=== PATIENT | female | born 1935 | race Caucasian/White ===

== ENCOUNTER → 2017-03-29 | Outpatient (CLI) | payer MEDICARE, OTHER ==
[2017-03-29 09:42] LABS: ABSOLUTE BASOPHILS # (AUTO) 0.1 10^3/uL (0.0-0.2); ABSOLUTE EOSINOPHILS # (AUTO) 0.2 10^3/uL (0.0-0.6); ABSOLUTE LYMPHOCYTES (AUTO) 1.5 10^3/uL (0.5-4.7); ABSOLUTE MONOCYTES (AUTO) 0.6 10^3/uL (0.1-1.4); ABSOLUTE NEUT (AUTO) 6.7 10^3/uL (1.7-8.2); BASOPHILS % (AUTO) 0.7 % (0-2); EOSINOPHILS % (AUTO) 2.3 % (0-6); HEMATOCRIT 33.5 % (36.0-47.0); HEMOGLOBIN 10.9 g/dL (12.0-15.5); HGB HCT DIFFERENCE -0.8; LYMPHOCYTES % (AUTO) 16.3 % (13-45); MEAN CORPUSCULAR HEMOGLOBIN 27.7 pg (27.0-33.4); MEAN CORPUSCULAR HGB CONC 32.5 g/dL (32.0-36.0); MEAN CORPUSCULAR VOLUME 85 fl (80-97); MONOCYTES % (AUTO) 6.8 % (3-13); RED BLOOD COUNT 3.94 10^6/uL (3.72-5.28); RED CELL DISTRIBUTION WIDTH 14.1 % (11.5-14.0); SEGMENTED NEUTROPHILS % (AUTO) 73.9 % (42-78); WHITE BLOOD COUNT 9.1 10^3/uL (4.0-10.5)
[2017-03-29 10:10] LABS: ALANINE AMINOTRANSFERASE 26 U/L (9-52); ALBUMIN 3.6 g/dL (3.5-5.0); ALKALINE PHOSPHATASE 84 U/L (38-126); ANION GAP 10 (5-19); ASPARTATE AMINO TRANSFERASE 12 U/L (14-36); BILIRUBIN,DIRECT 0.3 mg/dL (0.0-0.4); BILIRUBIN,TOTAL 0.3 mg/dL (0.2-1.3); BLOOD UREA NITROGEN 12 mg/dL (7-20); CALCIUM 9.2 mg/dL (8.4-10.2); CARBON DIOXIDE 28 mmol/L (22-30); CHLORIDE 98 mmol/L (98-107); CHOLESTEROL 199.08 mg/dL (0-200); CREATININE RESULT 0.84 mg/dL (0.52-1.25); Direct HDL 53 mg/dL (>40); GLUCOSE 91 mg/dL (75-110); POTASSIUM 5.1 mmol/L (3.6-5.0); SODIUM 135.7 mmol/L (137-145); TOTAL PROTEIN 6.7 g/dL (6.3-8.2); TRIGLYCERIDES 114 mg/dL (<150)
[2017-03-29 10:21] LABS: DIRECT LDL 125 mg/dL (<100)
== END ==
LOC: OD 08:44
PROVIDERS: ATTEND Family Medicine
DX: E78.5 Hyperlipidemia, unspecified (principal); D63.8 Anemia in other chronic diseases classified elsewhere; Z79.899 Other long term (current) drug therapy
CPT/HCPCS: 36415; 80053; 80061; 83540; 83550; 85025

== ENCOUNTER 2017-06-06 08:48 | Day surgery (SDC) | payer MEDICARE, OTHER ==
[~2017-06-06 08:48] MED LIST: PROPOFOL INJ 200 MG/20 ML VIAL IV ONE
[2017-06-06 10:34] VITALS: BP 132/67
--- NOTE | 2017-06-06 12:21 | Operative Report ---
Operative Report DATE OF SURGERY: 06/06/17 Operative Report: The risks, benefits and alternatives of the procedure including risks of bleeding, perforation requiring surgery are explained to the patient in detail and informed consent is obtained. Patient is taken back to the endoscopy suite and placed in the left, lateral decubital position. Timeout was called. Propofol medications administered. A rectal examination is done which did not reveal any masses, tears or fissures. An Olympus videoscope was inserted into the patient's rectum. It is carefully guided all the way to the cecum. The cecum was identified by the usual anatomical landmarks of the ileocecal valve as well as the appendiceal office. Photodocumentation was obtained. Prep was good. The scope was then sequentially pulled back via the rest segments of the colon including the ascending colon, hepatic flexure, transverse colon, splenic flexure, descending colon and into the rectosigmoid portions of the colon. Retroflexion maneuvers performed. The risks benefits and alternatives of the procedure explained to the patient in detail and informed consent is obtained.A GIF Olympus video scope was inserted into the patient's mouth and hypopharynx, the esophagus is identified intubated and insufflated, the scope was then advanced through the esophagus stomach and duodenum, retroflexion maneuver is done ,the esophagus stomach and first and second portions of the duodenum examined PREOPERATIVE DIAGNOSIS: Change in bowel habits. Diverticulosis. Gastroesophageal reflux disease POSTOPERATIVE DIAGNOSIS: Right side: Inflammation status post biopsy. Diverticulosis. 2 polyps in the colon removed via biopsy forceps. Esophagitis. Esophageal ulcer noted. Gastritis. Hiatal hernia OPERATION: Colonoscopy with biopsy. EGD with biopsy SURGEON: HUONG ALEXANDER ANESTHESIA: LMAC TISSUE REMOVED OR ALTERED: As noted above. COMPLICATIONS: None. ESTIMATED BLOOD LOSS: None. INTRAOPERATIVE FINDINGS: As described above. PROCEDURE: Patient tolerated procedure well. No immediate postprocedure complications are noted. Patient discharged in good condition. Discharge date 06/06/2017. Discharge diet: Regular. Discharge activity: Regular. 2-3 week follow-up to discuss findings. Patient is instructed to call the office or proceed to the emergency room should there be any further problems or questions. We will wait on pathology. 3-5 year surveillance colonoscopy due to the finding of polyps. We will need follow-up EGD to document healing of the ulcer.
== END 2017-06-06 10:33 | disposition home or self-care (01) ==
LOC: END 08:48
PROVIDERS: ATTEND Internal Medicine Gastroenterology
PROC: 0DB58ZX Excision of Esophagus, Via Natural or Artificial Opening Endoscopic, Diagnostic (ICD-10-PCS; 2017-06-06)
PROC: 0DBK8ZX Excision of Ascending Colon, Via Natural or Artificial Opening Endoscopic, Diagnostic (ICD-10-PCS; 2017-06-06)
PROC: 0DB68ZX Excision of Stomach, Via Natural or Artificial Opening Endoscopic, Diagnostic (ICD-10-PCS; principal; 2017-06-06 10:00)
PROC: 0DBF8ZX Excision of Right Large Intestine, Via Natural or Artificial Opening Endoscopic, Diagnostic (ICD-10-PCS; 2017-06-06 10:00)
DX: K21.9 Gastro-esophageal reflux disease without esophagitis (principal); K52.9 Noninfective gastroenteritis and colitis, unspecified; K57.30 Diverticulosis of large intestine without perforation or abscess without bleeding; D12.3 Benign neoplasm of transverse colon; K29.70 Gastritis, unspecified, without bleeding; K44.9 Diaphragmatic hernia without obstruction or gangrene; K21.0 Gastro-esophageal reflux disease with esophagitis; K22.10 Ulcer of esophagus without bleeding; M19.90 Unspecified osteoarthritis, unspecified site; I10 Essential (primary) hypertension; D64.9 Anemia, unspecified; F17.210 Nicotine dependence, cigarettes, uncomplicated; Z79.899 Other long term (current) drug therapy
CPT/HCPCS: 43239; 45380; 88305 ×2; 88312 ×2; J2704; 810

== ENCOUNTER 2017-07-29 08:09 | Day surgery (SDC) | payer MEDICARE, OTHER ==
[~2017-07-29 08:09] MED LIST changes: +DIPHENHYDRAMINE HCL 50 MG/ML VIAL ONE; +EPINEPHRINE INJ 1 MG/10 ML DISP.SYRIN ONE; +FENTANYL CITRATE INJ/PF 100 MCG/2 ML AMPUL ONE; +FLUMAZENIL INJ 0.5 MG/5 ML VIAL ONE; +GLUCAGON,HUMAN RECOMB 1 MG INJ ONE; +MIDAZOLAM 2 MG/2 ML INJ ONE; +NALOXONE HCL INJ/PF 0.4 MG/1 ML SDV ONE; +ONDANSETRON HCL INJ/PF 4 MG/2 ML SDV ONE; -PROPOFOL INJ 200 MG/20 ML VIAL IV ONE
--- NOTE | 2017-07-29 11:09 | Operative Report ---
Operative Report DATE OF SURGERY: 07/29/17 Operative Report: The risks benefits and alternatives of the procedure explained to the patient in detail and informed consent is obtained.A GIF Olympus video scope was inserted into the patient's mouth and hypopharynx, the esophagus is identified intubated and insufflated, the scope was then advanced through the esophagus stomach and duodenum, retroflexion maneuver is done, the esophagus stomach and first and second portions of the duodenum examined PREOPERATIVE DIAGNOSIS: Follow-up esophageal ulcer POSTOPERATIVE DIAGNOSIS: Healed esophageal ulcer. Hiatal hernia. Small area of Jalloh's esophagus which is prophylactically ablated given the patient's age and need for repeat procedure and sedation. OPERATION: EGD with ablation SURGEON: HUONG ALEXANDER ANESTHESIA: Moderate Sedation - 2 mg of Versed, 25 mcg of fentanyl. Conscious sedation monitoring time 30 minutes. TISSUE REMOVED OR ALTERED: None. COMPLICATIONS: None. ESTIMATED BLOOD LOSS: None. INTRAOPERATIVE FINDINGS: As noted above. PROCEDURE: Patient tolerated the procedure well. No immediate postprocedure complications are noted. Patient discharged in good condition. Discharge date 07/29/2017. Discharge diet: Regular. Discharge activity: Regular. 2-3 week follow-up to discuss findings. Patient is instructed to call the office or proceed to the emergency room should there be any further problems or questions. Continue Dexilant
[2017-07-29 12:05] VITALS: BP 124/46
== END 2017-07-29 12:10 | disposition home or self-care (01) ==
LOC: END 08:09
PROVIDERS: ATTEND Internal Medicine Gastroenterology
PROC: 0D558ZZ Destruction of Esophagus, Via Natural or Artificial Opening Endoscopic (ICD-10-PCS; principal; 2017-07-29 10:00)
DX: Z09 Encounter for follow-up examination after completed treatment for conditions other than malignant neoplasm (principal); Z87.11 Personal history of peptic ulcer disease; K44.9 Diaphragmatic hernia without obstruction or gangrene
CPT/HCPCS: 43270; J2250; J3010; J0171; J1200; J1610; J2310; J2405; J3490

== ENCOUNTER → 2017-10-20 | Outpatient (CLI) | payer MEDICARE, OTHER ==
[2017-10-20 12:08] LABS: ABSOLUTE BASOPHILS # (AUTO) 0.1 10^3/uL (0.0-0.2); ABSOLUTE EOSINOPHILS # (AUTO) 0.1 10^3/uL (0.0-0.6); ABSOLUTE LYMPHOCYTES (AUTO) 0.6 10^3/uL (0.5-4.7); ABSOLUTE MONOCYTES (AUTO) 0.5 10^3/uL (0.1-1.4); ABSOLUTE NEUT (AUTO) 8.2 10^3/uL (1.7-8.2); BASOPHILS % (AUTO) 0.7 % (0-2); EOSINOPHILS % (AUTO) 0.7 % (0-6); HEMOGLOBIN 8.7 g/dL (12.0-15.5); LYMPHOCYTES % (AUTO) 6.4 % (13-45); MEAN CORPUSCULAR HEMOGLOBIN 24.4 pg (27.0-33.4); MEAN CORPUSCULAR HGB CONC 32.2 g/dL (32.0-36.0); MEAN CORPUSCULAR VOLUME 76 fl (80-97); MONOCYTES % (AUTO) 5.3 % (3-13); PLATELET COUNT 455 10^3/uL (150-450); RED BLOOD COUNT 3.57 10^6/uL (3.72-5.28); RED CELL DISTRIBUTION WIDTH 17.3 % (11.5-14.0); SEGMENTED NEUTROPHILS % (AUTO) 86.9 % (42-78); TOTAL CELLS COUNTED % (AUTO) 100 %; WHITE BLOOD COUNT 9.4 10^3/uL (4.0-10.5)
[2017-10-20 12:31] LABS: ALANINE AMINOTRANSFERASE 15 U/L (9-52); ALBUMIN 3.2 g/dL (3.5-5.0); ALKALINE PHOSPHATASE 98 U/L (38-126); ANION GAP 10 (5-19); ASPARTATE AMINO TRANSFERASE 13 U/L (14-36); BILIRUBIN,DIRECT 0.4 mg/dL (0.0-0.4); BILIRUBIN,TOTAL 0.4 mg/dL (0.2-1.3); BLOOD UREA NITROGEN 11 mg/dL (7-20); CALCIUM 9.7 mg/dL (8.4-10.2); CARBON DIOXIDE 29 mmol/L (22-30); CHLORIDE 95 mmol/L (98-107); CHOLESTEROL 202.56 mg/dL (0-200); GLUCOSE 89 mg/dL (75-110); POTASSIUM 4.1 mmol/L (3.6-5.0); SODIUM 133.6 mmol/L (137-145); TOTAL PROTEIN 6.2 g/dL (6.3-8.2); TRIGLYCERIDES 118 mg/dL (<150)
[2017-10-20 12:43] LABS: DIRECT LDL 133 mg/dL (<100)
== END ==
LOC: OD 11:01
PROVIDERS: ATTEND Family Medicine
DX: E78.5 Hyperlipidemia, unspecified (principal); Z79.899 Other long term (current) drug therapy
CPT/HCPCS: 36415; 80053; 80061; 84443; 85025

== ENCOUNTER 2017-11-21 02:53 | Inpatient (IN) | payer MEDICARE, OTHER ==
[2017-11-21 03:45] LABS: ABSOLUTE EOSINOPHILS # (AUTO) 0.1 10^3/uL (0.0-0.6); ABSOLUTE LYMPHOCYTES (AUTO) 0.7 10^3/uL (0.5-4.7); ABSOLUTE MONOCYTES (AUTO) 0.7 10^3/uL (0.1-1.4); ABSOLUTE NEUT (AUTO) 11.2 10^3/uL (1.7-8.2); BASOPHILS % (AUTO) 0.3 % (0-2); EOSINOPHILS % (AUTO) 0.8 % (0-6); HEMATOCRIT 27.9 % (36.0-47.0); HEMOGLOBIN 8.8 g/dL (12.0-15.5); LYMPHOCYTES % (AUTO) 5.3 % (13-45); MEAN CORPUSCULAR HEMOGLOBIN 24.2 pg (27.0-33.4); MEAN CORPUSCULAR HGB CONC 31.6 g/dL (32.0-36.0); MEAN CORPUSCULAR VOLUME 77 fl (80-97); MONOCYTES % (AUTO) 5.5 % (3-13); PLATELET COUNT 399 10^3/uL (150-450); RED BLOOD COUNT 3.65 10^6/uL (3.72-5.28); RED CELL DISTRIBUTION WIDTH 17.2 % (11.5-14.0); SEGMENTED NEUTROPHILS % (AUTO) 88.1 % (42-78); TOTAL CELLS COUNTED % (AUTO) 100 %; WHITE BLOOD COUNT 12.7 10^3/uL (4.0-10.5)
--- NOTE | 2017-11-21 03:47 | ER Document Report ---
ED Fall - General Chief Complaint: Fall Stated Complaint: DIZZINESS/FALL Time Seen by Provider: 11/21/17 03:07 Mode of Arrival: Medic Information source: Patient TRAVEL OUTSIDE OF THE [place] IN LAST 30 DAYS: No - HPI Patient complains to provider of: WEAKNESS/FALL Occurred: Just prior to arrival Where: Home Notes: Patient is here with complaints of fall. The patient has a known history of anemia. Her hemoglobin was 8.7 at the beginning of October. She states that she is in the process of seeing a laser beam machine operator and was supposed to start iron infusions here shortly. She tells me that she has had an endoscopy which showed no obvious source of bleeding. She states that she got up this morning to go to the bathroom and felt extremely dizzy had a syncopal episode causing her to fall and strike her head. She denies being on blood thinning medications. She complains of a mild headache and a hematoma to the posterior aspect of her head. She complains of skin tears to the right elbow on the left hand. She also complains of mild pain in the left knee. She denies any neck or back pain. She denies any chest pain or shortness of breath. She denies abdominal pain. She denies nausea, vomiting, diarrhea. She is currently being treated for urinary tract infection. She states that she still feels very weak and is unable to stand. She lives at home with her daughter. - Related data Allergies/Adverse Reactions: Sulfa (Sulfonamide Antibiotics) Allergy (Mild, Verified 07/29/17 08:13) rash levofloxacin [From Levaquin] Adverse Reaction (Mild, Verified 07/29/17 08:13) Nausea oxycodone HCl [From Percocet] Adverse Reaction (Mild, Verified 07/29/17 08:13) Nausea Past Medical History - Social History Smoking Status: Unknown if Ever Smoked Family History: Reviewed & Not Pertinent Patient has suicidal ideation: No Patient has homicidal ideation: No - Past Medical History Cardiac Medical History: Reports: Hx Heart Attack - "old [place]" per Dr Zaragoza's clearance, YRS AGO, NO STENTS, Hx Hypertension - meds x 10 years Denies: Hx Atrial Fibrillation, Hx Congestive Heart Failure, Hx Coronary Artery Disease, Hx Hypercholesterolemia, Hx Peripheral Vascular Disease, Hx Heart Murmur Pulmonary Medical History: Denies: Hx Asthma, Hx Bronchitis, Hx COPD, Hx Pneumonia, Hx Tuberculosis Neurological Medical History: Denies: Hx Cerebrovascular Accident, Hx Seizures Renal/ Medical History: Denies: Hx End Stage Renal Disease, Hx Kidney Stones, Hx Ovarian Cysts, Hx Peritoneal Dialysis, Hx Pelvic Inflammatory Disease Malignancy Medical History: Reports: Hx Breast Cancer - RT lumpectomy 2003. Denies: Hx Cervical Cancer, Hx Leukemia, Hx Ovarian Cancer GI Medical History: Reports: Hx Gastroesophageal Reflux Disease, Hx Hiatal Hernia. Denies: Hx Crohn's Disease, Hx Irritable Bowel, Hx Liver Failure, Hx Pancreatitis, Hx Ulcer Musculoskeltal Medical History: Reports Hx Arthritis, Denies Hx Fibromyalgia, Denies Hx Multiple Sclerosis, Denies Hx Muscular Dystrophy Psychiatric Medical History: Denies: Hx Bipolar Disorder, Hx Dementia, Hx Depression, Hx Post Traumatic Stress Disorder, Hx Schizophrenia Traumatic Medical History: Reports: Hx Fractures - RT femur 2011 Infectious Medical History: Denies: Hx HIV Past Surgical History: Reports: Hx Appendectomy - as child, Hx Cholecystectomy - lap, Hx Lumpectomy - Right 2001, Hx Mastectomy - lumpectomy RT, 2001, Hx Orthopedic Surgery - right total hip, right femur. Denies: Hx Bowel Surgery, Hx Section, Hx Colostomy, Hx Coronary Artery Bypass Graft, Hx Gastric Bypass Surgery, Hx Herniorrhaphy, Hx Hysterectomy, Hx Pacemaker, Hx Tonsillectomy, Hx Tubal Ligation - Immunizations Immunizations up to date: Yes Hx Diphtheria, Pertussis, Tetanus Vaccination: No Review of Systems - Review of Systems -: Yes All other systems reviewed and negative Physical Exam - Vital signs Vitals: Resp Pulse Ox 15 98 11/21/17 03:06 11/21/17 03:06 - Notes Notes: GENERAL: alert, cooperative, nontoxic, no distress. HEAD: normocephalic, hematoma to the posterior scalp. No laceration. No depression or crepitus. EYES: conjunctiva pink without discharge, no external redness or swelling. PERRL , EOM'S INTACT EARS: no external swelling, no external redness. No hemotympanum EM NOSE: atraumatic, no external swelling. No bleeding MOUTH/THROAT: mucous membranes moist and pink, posterior pharynx without erythema, swelling, exudate. No trismus or drooling. NECK: soft, supple, full range of motion, no meningismus. No midline tenderness step-offs or crepitus to palpation of the cervical spine. CHEST: no distress, lungs clear and equal throughout. No wheezing, rales, rhonchi. CARDIAC: regular rate and rhythm, no murmur, normal capillary refill, normal pulses. No peripheral edema noted. ABDOMEN: Soft, nontender. No ecchymosis. BACK: full range of motion, no CVA tenderness. No midline tenderness step-offs or crepitus to palpation of the thoracic or lumbar spine. EXTREMITIES: full range of motion of all extremities. No redness, no swelling. No pelvis tenderness. Mild tenderness to palpation of the left posterior knee. No swelling. No redness. No ligament instability. Ankle and hip are unremarkable. NEURO: alert and oriented x 3, no focal deficits, full range of motion of all extremities. Cranial nerves II through XII are grossly intact. Normal sensation bilaterally. Normal strength bilaterally. PYSCH: appropriate mood, affect. Patient is cooperative. SKIN: pink, warm, dry, no rash. Skin tear to the right elbow, no active bleeding. Small skin tear to the left hand, no active bleeding. Course - Re-evaluation Re-evalutation: 11/21/17 06:00 ATTEMPT MADE TO CONTACT HOSPITALIST FOR ADMISSION. NO ANSWER FROM THE HOSPITALIST. 11/21/17 06:10 SECOND ATTEMPT MADE TO DISCUSS CASE WITH HOSPITALIST. NO ANSWER. 11/21/17 06:25 THIRD ATTEMPT TO REACH HOSPITALIST, PHONE IS BUSY. 11/21/17 06:41 Patient is nontoxic appearing with stable vitals. She does not appear to be orthostatic. Patient had a syncopal episode while going to the bathroom this evening. She hit the back of her head. She is on no blood thinners. She has a nonfocal neuro exam aside from extreme dizziness when standing. She still states that she feels dizzy if she stands and feels like she may pass out. Troponins negative EKG is unremarkable, CT the head shows no acute abnormalities. CT of the C-spine shows a spiculated lesion in the apices of the lung which was incompletely imaged. Chest x-ray shows a possible left upper lobe pneumonia although the patient declines any significant pneumonia type symptoms. At this point we will hold off on antibiotics. This was discussed with the hospitalist. Patient will be admitted to the hospital for further evaluation and management of her syncopal episodes with continued dizziness. The patient is anemic at 8.8, but this is stable for her. Remainder of her exam is unremarkable. - Vital Signs Vital signs: Temp Pulse Resp BP Pulse Ox 98.9 F 81 11 L 178/68 H 100 11/21/17 03:07 11/21/17 05:51 11/21/17 06:01 11/21/17 06:01 11/21/17 05:44 - Laboratory Result Diagrams: 11/21/17 03:20 11/21/17 03:20 Laboratory results interpreted by me: 11/21/17 11/21/17 11/21/17 03:20 03:20 04:01 WBC 12.7 H RBC 3.65 L Hgb 8.8 L Hct 27.9 L MCV 77 L MCH 24.2 L MCHC 31.6 L RDW 17.2 H Seg Neutrophils % 88.1 H Lymphocytes % 5.3 L Absolute Neutrophils 11.2 H Sodium 133.1 L Est GFR (Non-Af Amer) 54 L Glucose 111 H Total Protein 5.8 L Albumin 3.0 L Urine Blood SMALL H - Diagnostic Test Radiology reviewed: Image reviewed, Reports reviewed - CT head without acute findings. CT spine with no acute cervical findings with a spiculated lung lesion. Chest x-ray with possible left upper lobe pneumonia. Left knee x-ray no acute findings. Pelvis x-ray with no acute findings. - EKG Interpretation by Me EKG shows normal: Sinus rhythm, [place], Intervals, QRS Complexes Rate: Normal Discharge - Discharge Clinical Impression: Dizziness Syncope Qualifiers: Syncope type: unspecified Qualified Code(s): R55 - Syncope and collapse Fall Qualifiers: Encounter type: initial encounter Qualified Code(s): W19.XXXA - Unspecified fall, initial encounter Condition: Stable Disposition: ADMITTED INPATIENT Admitting Provider: Hospitalist Unit Admitted: IMCU Referrals: NADER ROSS MD [Primary Care Provider] - Follow up as needed
[2017-11-21 03:51] LABS: ALANINE AMINOTRANSFERASE 24 U/L (9-52); ALKALINE PHOSPHATASE 83 U/L (38-126); ANION GAP 8 (5-19); ASPARTATE AMINO TRANSFERASE 14 U/L (14-36); BILIRUBIN,DIRECT 0.3 mg/dL (0.0-0.4); BILIRUBIN,TOTAL 0.3 mg/dL (0.2-1.3); BLOOD UREA NITROGEN 16 mg/dL (7-20); CALCIUM 9.7 mg/dL (8.4-10.2); CARBON DIOXIDE 26 mmol/L (22-30); CHLORIDE 99 mmol/L (98-107); GLUCOSE 111 mg/dL (75-110); POTASSIUM 3.7 mmol/L (3.6-5.0); SODIUM 133.1 mmol/L (137-145); TOTAL PROTEIN 5.8 g/dL (6.3-8.2)
[2017-11-21 04:20] LABS: APPEARANCE,URINE SLIGHTLY-CLOUDY; BILIRUBIN,URINE NEGATIVE (NEGATIVE); COLOR,URINE YELLOW; GLUCOSE, URINE NEGATIVE (NEGATIVE); KETONES,URINE NEGATIVE (NEGATIVE); LEUKOCYTE ESTERASE,URINE NEGATIVE (NEGATIVE); NITRITE,URINE NEGATIVE (NEGATIVE); PROTEIN,URINE NEGATIVE (NEGATIVE); URINE SPECIFIC GRAVITY 1.008; UROBILINOGEN,URINE NEGATIVE mg/dL (<2.0)
--- NOTE | 2017-11-21 04:32 | RADIOLOGY REPORT (SQ) ---
EXAM DESCRIPTION: CT HEAD WITHOUT CLINICAL HISTORY: 82 years Female, FALL, HEAD INJURY COMPARISON: None. TECHNIQUE: No contrast. This exam was performed according to our departmental dose-optimization program, which includes automated exposure control, adjustment of the mA and/or kV according to patient size and/or use of iterative reconstruction technique. FINDINGS: No hemorrhage or infarct. No mass, mass effect, or midline shift. Moderate right parietal scalp swelling. Atherosclerosis. Mild cerebral volume loss. Mild white matter microangiopathy. Brain and extra-axial structures appear otherwise intact. IMPRESSION: Moderate scalp swelling. Else, no acute findings.
--- NOTE | 2017-11-21 04:43 | RADIOLOGY REPORT (SQ) ---
EXAM DESCRIPTION: CT CERVICAL SPINE WITHOUT CLINICAL HISTORY: 82 years Female, FALL, HEAD INJURY COMPARISON: None. TECHNIQUE: No contrast. Coronal and sagittal reformat. This exam was performed according to our departmental dose-optimization program, which includes automated exposure control, adjustment of the mA and/or kV according to patient size and/or use of iterative reconstruction technique. FINDINGS: Upper thorax demonstrates bilateral lung lesions including two spiculated lesions of the right upper lobe measuring up to 1.2 cm each. 0.8 cm calcified nodule posterior to the left thyroid lobe. 0.2 cm degenerative C6 and C7 anterolisthesis. Atherosclerosis. No evidence of fracture. [id number] disc desiccation. Moderate spondylosis. Partial fusion of the posterior elements at the C4-C5 level. Mild left C4 foraminal stenosis. 0.8 cm right maxillary retention cyst-mucocele. IMPRESSION: 1. Spiculated lung lesions partially imaged; cannot exclude malignancy. Recommend contrast CT of the chest. 2. 0.2 cm degenerative C6 and C7 anterolisthesis.
[2017-11-21] MEDS ORDERED: NORMAL SALINE 1000 ML 500 ML IV ONE (05:03)
--- NOTE | 2017-11-21 05:07 | RADIOLOGY REPORT (SQ) ---
EXAM DESCRIPTION: CHEST PA/LAT CLINICAL HISTORY: 82 years, Female, SYNCOPE COMPARISON: None. NUMBER OF VIEWS: 1 LIMITATIONS: None. FINDINGS: Small streakiness of the left upper lobe. Mild interstitial markings. Mild/moderate vertebral compression at estimated L1. Mild dextroconvexity. Right upper abdominal clips. Right axillary clips. IMPRESSION: 1. Small left upper lobar pneumonia/atelectasis. 2. [id number] vertebral compression deformity at the thoracic lumbar junction.
--- NOTE | 2017-11-21 05:09 | RADIOLOGY REPORT (SQ) ---
EXAM DESCRIPTION: PELVIS AP CLINICAL HISTORY: 82 years, Female, SYNCOPE NUMBER OF VIEWS: 1 LIMITATIONS: None. FINDINGS: Right total hip arthroplasty. Atherosclerosis. Mild disc desiccation at the lumbosacral junction. IMPRESSION: No acute findings. Right total hip arthroplasty.
--- NOTE | 2017-11-21 05:10 | RADIOLOGY REPORT (SQ) ---
EXAM DESCRIPTION: KNEE LEFT 3 VIEWS CLINICAL HISTORY: 82 years, Female, SYNCOPE COMPARISON: None. NUMBER OF VIEWS: 3 LIMITATIONS: None. FINDINGS: [id number] tricompartmental osteoarthritis worst at the lateral patellofemoral joint, chondrocalcinosis, and atherosclerosis. No effusion. IMPRESSION: No acute findings. 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
--- NOTE | 2017-11-21 09:17 | EKG REPORT ---
SEVERITY:- ABNORMAL ECG - SINUS RHYTHM VENTRICULAR PREMATURE COMPLEX CONSIDER ANTEROSEPTAL INFARCT BORDERLINE T ABNORMALITIES, INFERIOR LEADS : Confirmed by: Lino Wagner 21-Nov-2017 09:16:54
[2017-11-21] MEDS ORDERED: OXYCODONE-ACETAMINOPHEN 5-325 MG TABLET PO PRN (10:46)
[2017-11-21] MEDS ORDERED: RINGERS SOLUTION,LACTATED 1,000 ML IV PRN (10:46)
[2017-11-21] MEDS ORDERED: ONDANSETRON HCL INJ/PF 4 MG/2 ML SDV IV PRN (10:46)
[2017-11-21] MEDS ORDERED: IPRATROPIUM/ALBUTEROL 0.5-2.5 MG/3 ML AMPUL NEB PRN (10:46)
[2017-11-21] MEDS ORDERED: IRON SUCROSE COMPLEX 100 MG in NORMAL SALINE 100 ML IV ONE (10:55)
--- NOTE | 2017-11-21 11:32 | PDOC H&P ---
History of Present Illness Admission Date/PCP: 11/21/17 07:10 NADER ROSS MD Patient complains of: Dizziness and passing out for a few seconds during the night History of Present Illness: KEAAR FARAH is a 82 year old female who presents to the emergency room with complaints of feeling dizzy on getting up to the used to bathroom during the night. Said she did lose consciousness for a few seconds. She was unable to get up by herself and was helped up by her daughter. She denies any associated palpitations chest pain nausea vomiting and denies any incontinence. There apparently was also no seizure activity. Patient gives a history of such dizziness before in June 2017 was she did not come to the ER as this resolved spontaneously. States she had been told that she was iron deficient and she was supposed to have been started on iron infusion this week. She denies any evidence of bleeding fever cough dysuria frequency abdominal pain or any other pertinent complaints. Patient also complains of feeling dizzy on my evaluation in the ER but denies any other associated symptoms Past Medical History Past Medical History: Anemia Cardiac Medical History: Reports: Myocardial Infarction - "old [place]" per Dr Zaragoza' s clearance, YRS AGO, NO STENTS, Hypertension - meds x 10 years Denies: Atrial Fibrillation, Congestive Heart Failure, Coronary Artery Disease, Hyperlipidema, Peripheral Vascular Disease, Heart Murmur Pulmonary Medical History: Denies: Asthma, Bronchitis, Chronic Obstructive Pulmonary Disease (COPD), Pneumonia, Tuberculosis Neurological Medical History: Denies: Seizures Renal/ Medical History: Denies: End Stage Renal Disease Malignancy Medical History: Reports: Breast Cancer - RT lumpectomy 2003 Denies: Cervical Cancer, Leukemia, Ovarian Cancer GI Medical History: Reports: Gastroesophageal Reflux Disease, Hiatal Hernia Denies: Crohn's Disease Musculoskeltal Medical History: Reports: Arthritis Denies: Fibromyalgia Psychiatric Medical History: Denies: Bipolar Disorder, Dementia, Depression, Post Traumatic Stress Disorder Hematology: Reports: Anemia - chronic & post-op RT JACQUELYN/THR, PRBC's required Denies: Hemophilia, Sickle Cell Disease Infectious Medical History: Denies: HIV Past Surgical History Past Surgical History: Reports: Appendectomy - as child, Cholecystectomy - lap, Mastectomy - lumpectomy RT, 2001, Orthopedic Surgery - right total hip, right femur Denies: Amputation, Section, Colostomy, Coronary Artery Bypass Graft , Gastric Bypass Surgery, Herniorrhaphy, Hysterectomy, Pacemaker, Tonsillectomy , Tubal Ligation Social History Lives with: Family Smoking Status: Unknown if Ever Smoked Frequency of Alcohol Use: None Hx Recreational Drug Use: No Drugs: None Hx Prescription Drug Abuse: No - Advance Directive Resuscitation Status: Do Not Resuscitate Surrogate healthcare decision maker:: Daughter Family History Family History: Reviewed & Not Pertinent Parental Family History Reviewed: Yes - Unknown Children Family History Reviewed: Unknown Sibling(s) Family History Reviewed.: Unknown Medication/Allergy Allergies/Adverse Reactions: Sulfa (Sulfonamide Antibiotics) Allergy (Mild, Verified 07/29/17 08:13) rash levofloxacin [From Levaquin] Adverse Reaction (Mild, Verified 07/29/17 08:13) Nausea oxycodone HCl [From Percocet] Adverse Reaction (Mild, Verified 07/29/17 08:13) Nausea Review of Systems Constitutional: PRESENT: weakness. ABSENT: fever(s), headache(s) Ears: ABSENT: hearing changes Cardiovascular: ABSENT: chest pain, dyspnea on exertion, edema, orthropnea, palpitations Respiratory: ABSENT: cough, hemoptysis Gastrointestinal: ABSENT: abdominal pain, constipation, diarrhea, hematemesis, hematochezia, nausea, vomiting Genitourinary: ABSENT: dysuria, hematuria Musculoskeletal: ABSENT: joint swelling Neurological: ABSENT: abnormal gait, abnormal speech, confusion, dizziness, focal weakness, syncope Psychiatric: ABSENT: anxiety, depression, homidical ideation, suicidal ideation Hematologic/Lymphatic: PRESENT: other - anemia Physical Exam Vital Signs: Temp Pulse Resp BP Pulse Ox 98.9 F 81 14 173/62 H 97 11/21/17 03:07 11/21/17 05:51 11/21/17 10:01 11/21/17 10:01 11/21/17 10:01 General appearance: PRESENT: no acute distress, thin - . Elderly and frail comfortable in no distress, undernourished Head exam: PRESENT: atraumatic Eye exam: PRESENT: conjunctiva pink, EOMI, PERRLA. ABSENT: scleral icterus Mouth exam: PRESENT: dry mucosa Neck exam: ABSENT: carotid bruit, JVD, lymphadenopathy, thyromegaly Respiratory exam: PRESENT: clear to auscultation shirley. ABSENT: rales, rhonchi, wheezes Cardiovascular exam: PRESENT: RRR. ABSENT: diastolic murmur, rubs, systolic murmur Pulses: PRESENT: normal dorsalis pedis pul GI/Abdominal exam: PRESENT: normal bowel sounds, soft. ABSENT: distended, guarding, mass, organolmegaly, rebound, tenderness Rectal exam: PRESENT: deferred Extremities exam: PRESENT: full ROM. ABSENT: calf tenderness, clubbing, pedal edema Musculoskeletal exam: PRESENT: ambulatory Neurological exam: PRESENT: alert, awake, oriented to person, oriented to place , oriented to time, oriented to situation, reflexes normal, CN II-XII grossly intact. ABSENT: motor sensory deficit, aphasic Psychiatric exam: PRESENT: appropriate affect, normal mood. ABSENT: homicidal ideation, suicidal ideation Focused psych exam: ABSENT: paranoid, restlessness Results Laboratory Results: Laboratory 11/21/17 11/21/17 11/21/17 03:20 03:20 03:20 WBC 12.7 H RBC 3.65 L Hgb 8.8 L Hct 27.9 L MCV 77 L MCH 24.2 L MCHC 31.6 L RDW 17.2 H Plt Count 399 Seg Neutrophils % 88.1 H Lymphocytes % 5.3 L Monocytes % 5.5 Eosinophils % 0.8 Basophils % 0.3 Absolute Neutrophils 11.2 H Absolute Lymphocytes 0.7 Absolute Monocytes 0.7 Absolute Eosinophils 0.1 Absolute Basophils 0.0 Sodium 133.1 L Potassium 3.7 Chloride 99 Carbon Dioxide 26 Anion Gap 8 BUN 16 Creatinine 0.98 Est GFR ( Amer) > 60 Est GFR (Non-Af Amer) 54 L Glucose 111 H Calcium 9.7 Iron Total Bilirubin 0.3 Direct Bilirubin 0.3 Neonat Total Bilirubin Not Reportable Neonat Direct Bilirubin Not Reportable Neonat Indirect Bili Not Reportable AST 14 ALT 24 Alkaline Phosphatase 83 Troponin I < 0.012 Total Protein 5.8 L Albumin 3.0 L Urine Color Urine Appearance Urine pH Ur Specific Sherwood Urine Protein Urine Glucose (UA) Urine Ketones Urine Blood Urine Nitrite Urine Bilirubin Urine Urobilinogen Ur Leukocyte Esterase Urine WBC (Auto) Urine RBC (Auto) Urine Mucus (Auto) Urine Ascorbic Acid 11/21/17 11/21/17 03:20 04:01 WBC RBC Hgb Hct MCV MCH MCHC RDW Plt Count Seg Neutrophils % Lymphocytes % Monocytes % Eosinophils % Basophils % Absolute Neutrophils Absolute Lymphocytes Absolute Monocytes Absolute Eosinophils Absolute Basophils Sodium Potassium Chloride Carbon Dioxide Anion Gap BUN Creatinine Est GFR ( Amer) Est GFR (Non-Af Amer) Glucose Calcium Iron < 10.1 L Total Bilirubin Direct Bilirubin Neonat Total Bilirubin Neonat Direct Bilirubin Neonat Indirect Bili AST ALT Alkaline Phosphatase Troponin I Total Protein Albumin Urine Color YELLOW Urine Appearance SLIGHTLY-CLOUDY Urine pH 6.0 Ur Specific Sherwood 1.008 Urine Protein NEGATIVE Urine Glucose (UA) NEGATIVE Urine Ketones NEGATIVE Urine Blood SMALL H Urine Nitrite NEGATIVE Urine Bilirubin NEGATIVE Urine Urobilinogen NEGATIVE Ur Leukocyte Esterase NEGATIVE Urine WBC (Auto) 1 Urine RBC (Auto) 2 Urine Mucus (Auto) RARE Urine Ascorbic Acid NEGATIVE EKG Comments: EKG shows sinus rhythm with premature ventricular complexes as well as abnormal T waves in inferior leads. Impressions: Chest X-Ray 11/21/17 03:16 IMPRESSION: 1. Small left upper lobar pneumonia/atelectasis. 2. [id number] vertebral compression deformity at the thoracic lumbar junction. Knee X-Ray 11/21/17 03:16 IMPRESSION: No acute findings. 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 Pelvis X-Ray 11/21/17 03:16 IMPRESSION: No acute findings. Right total hip arthroplasty. Cervical Spine CT 11/21/17 03:17 IMPRESSION: 1. Spiculated lung lesions partially imaged; cannot exclude malignancy. Recommend contrast CT of the chest. 2. 0.2 cm degenerative C6 and C7 anterolisthesis. Head CT 11/21/17 03:17 IMPRESSION: Moderate scalp swelling. Else, no acute findings. Assessment & Plan - Diagnosis (1) Syncope Qualifiers: Syncope type: unspecified Qualified Code(s): R55 - Syncope and collapse Is this a current diagnosis for this admission?: Yes Plan: Patient says she lost consciousness for about a few seconds but with no associated symptoms. (2) Anemia Qualifiers: Anemia type: iron deficiency Iron deficiency anemia type: chronic blood loss Qualified Code(s): D50.0 - Iron deficiency anemia secondary to blood loss (chronic) Is this a current diagnosis for this admission?: Yes Plan: This is already been worked up by patient's PCP and in fact she was scheduled to receive a iron transfusion this week. Iron store was 10 and so go ahead and replete her iron IV. I will also check occult blood. And tells me that she has had a colonoscopy and endoscopy done within the last 3 months or so and these were negative (3) Lung mass Is this a current diagnosis for this admission?: Yes Plan: CT of the cervical spine reveals a questionable spiculated mass and a CT scan of the chest with contrast has been ordered for further evaluation. This should be followed. (4) Malnutrition Qualifiers: Malnutrition type: protein-calorie malnutrition Protein-calorie malnutrition severity: mild Qualified Code(s): E44.1 - Mild protein-calorie malnutrition Is this a current diagnosis for this admission?: Yes Plan: Patient is underweight. Supplements suggested (5) Dizziness Is this a current diagnosis for this admission?: Yes Plan: Patient will be monitored on telemetry floor and 2-dimensional echocardiogram as well as MRI of the brain and carotid Doppler studies will be obtained. (6) Fall Qualifiers: Encounter type: initial encounter Qualified Code(s): W19.XXXA - Unspecified fall, initial encounter Is this a current diagnosis for this admission?: Yes Plan: Ground-level fall during the night associated with transient loss of consciousness. - Time Time Spent: 50 to 70 Minutes Critical Time spent with patient: Less than 15 minutes Medications reviewed and adjusted accordingly: Yes Anticipated discharge: Home
[2017-11-21] MEDS ORDERED: ENOXAPARIN SODIUM INJ 40 MG/0.4 ML DISP.SYRIN SUBCUT ONE (12:30)
--- NOTE | 2017-11-21 12:55 | RADIOLOGY REPORT (SQ) ---
EXAM DESCRIPTION: MRI HEAD WITHOUT COMPLETED DATE/TIME: 11/21/2017 12:46 pm REASON FOR STUDY: Fall, dizziness COMPARISON: CT dated 11/21/2017. TECHNIQUE: Multiplanar imaging includes non-contrasted T1, T2, FLAIR, and diffusion with ADC map seq uences. Images stored on PACS. LIMITATIONS: None. FINDINGS: ANATOMY: No anomalies. Normal vascular flow voids. Pituitary fossa normal. CSF SPACES: Atrophy induced prominence of ventricles and CSF spaces. CEREBRUM: High signal intensity lesions scattered throughout the white matter on FLAIR imaging with d istribution suggesting micro-vascular ischemic changes. No evidence of hemorrhage, mass, or extraaxi al fluid collection. POSTERIOR FOSSA: No signal alteration. No hemorrhage. No edema, masses or mass effect. Internal pratik tory canals, cerebello-pontine angles, mastoids normal. DIFFUSION IMAGING: Negative for acute or sub-acute infarction. ORBITS: No masses. Globes normal. PARANASAL SINUSES: No fluid levels. Mucosa normal. OTHER: No other significant finding. IMPRESSION: ATROPHY AND CHRONIC MICRO-VASCULAR ISCHEMIC CHANGES. OTHERWISE NORMAL MRI OF THE BRAIN W ITHOUT INTRAVENOUS GADOLINIUM CONTRAST. EVIDENCE OF ACUTE STROKE: NO. TECHNICAL DOCUMENTATION: JOB ID: [id number] [employer]- All Rights Reserved Reading location - IP/workstation name: [email or web address]
[2017-11-21] MEDS ORDERED: IRON SUCROSE COMPLEX INJ/PF 100 MG/5 ML SDV IV ONE (13:00)
--- NOTE | 2017-11-21 13:35 | RADIOLOGY REPORT (SQ) ---
EXAM DESCRIPTION: CT CHEST WITH COMPLETED DATE/TIME: 11/21/2017 1:09 pm REASON FOR STUDY: ? lung lesion COMPARISON: Chest x-ray dated 11/21/2017 and CTA chest dated March 2012 TECHNIQUE: CT scan of the chest performed using helical scanning technique with dynamic intravenous contrast injection. Images reviewed with lung, soft tissue and bone windows. Reconstructed coronal and sagittal MPR images reviewed. All images stored on PACS. All CT scanners at this facility use dose modulation, iterative reconstruction, and/or weight based d osing when appropriate to reduce radiation dose to as low as reasonably achievable (ALARA). [facility]: Dose Right [facility]: CareDose [facility]: Dose Right [facility]: Teradose 4D [facility]: [employer] CONTRAST TYPE AND DOSE: contrast/concentration: Isovue 370.00 mg/ml; Total Contrast Delivered: 80.0 ml; Total Saline Delivered: 54.0 ml RENAL FUNCTION: Creatinine 0.98 RADIATION DOSE: CT Rad equipment meets quality standard of care and radiation dose reduction techniq ues were employed. CTDIvol: 6.3 mGy. DLP: 234 mGy-cm. . LIMITATIONS: None. FINDINGS: LUNGS AND PLEURA: There are couple small spiculated nodules in the right lung apex which w ere not present on the previous study. While this may only represent parenchymal scarring, the possi bility of a neoplastic process cannot be excluded. There are some minimal linear densities in the ri ght upper lobe and right middle lobe which could represent subsegmental atelectasis or scarring. A t iny ground-glass opacity is identified in the left upper lung field best seen on image number 19 of s eries 4. There is some minimal airspace consolidation in the posterior sulcus on the right most cons istent with atelectatic changes. No consolidations or pleural effusions are identified. HILAR AND MEDIASTINAL STRUCTURES: No identified masses or abnormal nodes. HEART AND VASCULAR STRUCTURES: No aneurysm or dissection. No central pulmonary emboli. No pericardi al effusion. HARDWARE: None in the chest. UPPER ABDOMEN: There are multiple varying size relative low density mass lesions in the spleen which could represent lymphoma or metastatic disease. There are a couple somewhat ill-defined relative low density masses in the liver which could be related to lymphoma or metastatic disease. There is some nodularity of the left adrenal gland suspicious for metastatic disease. There is periaortic adenopa thy in the upper abdomen. A dedicated abdominal and pelvic CT scan may be of value for further evalu ation. Left renal cyst is again identified THYROID AND OTHER SOFT TISSUES: No masses. No adenopathy. BONES: There is a vertebral compression at the thoracolumbar junction which was present on the previo us study OTHER: No other significant finding. IMPRESSION: There are couple small spiculated nodules in the right lung apex as noted above which ma y only represent parenchymal scarring however the possibility of a neoplastic process cannot be exclu ded. No acute consolidations or pleural effusions are identified. Hepatic and splenic masses as not ed above which could be related to lymphoma or metastatic disease. Periaortic adenopathy is identifi ed. There is some nodularity of the left adrenal gland as noted above. A dedicated abdominal and pe lvic CT scan may be of value for further evaluation. Other findings as noted above TECHNICAL DOCUMENTATION: JOB ID: [id number] Quality ID # [id number]: Final reports with documentation of one or more dose reduction techniques (e.g., Au tomated exposure control, adjustment of the mA and/or kV according to patient size, use of iterative reconstruction technique) 2010 [employer]- All Rights Reserved Reading location - IP/workstation name: [email or web address]
--- NOTE | 2017-11-21 15:51 | RADIOLOGY REPORT (SQ) ---
EXAM DESCRIPTION: CAROTID DOPPLER COMPLETED DATE/TIME: 11/21/2017 3:42 pm REASON FOR STUDY: Dizziness COMPARISON: None. TECHNIQUE: Grayscale ultrasound, Doppler velocity and spectra, and color Doppler images acquired of the extra-cranial carotid and vertebral arteries. Images stored on PACS. LIMITATIONS: None. FINDINGS: RIGHT CAROTID CCA Velocities: Within normal limits. ICA Velocities Peak systolic 0.91 m/s. End diastolic 0.18 m/s. Proximal ICA/CCA peak systolic ratio 1.3. Spectra normal. No significant plaque. LEFT CAROTID CCA Velocities: Within normal limits. ICA Velocities Peak systolic 1.24 m/s. End diastolic 0.20 m/s. Proximal ICA/CCA peak systolic ratio 1.7. Spectra normal. No significant plaque. VERTEBRAL ARTERIES: Antegrade flow. Normal waveforms. SUBCLAVIAN ARTERIES: No finding. OTHER: No other significant finding. IMPRESSION: NO HEMODYNAMICALLY SIGNIFICANT STENOSIS. COMMENT: Quality ID #[id number]: Velocity criteria are extrapolated from the diameter data as defined by t he Society of Radiologists in Ultrasound Consensus Conference. Radiology 2003: 229; 340-346. TECHNICAL DOCUMENTATION: JOB ID: [id number] [email or web address]- All Rights Reserved Reading location - IP/workstation name: [email or web address]
--- NOTE | 2017-11-21 18:27 | XCELERA REPORT ---
[address] [address] Transthoracic Echocardiogram Report Name: KEARA FARAH Age: 82 yrs Gender: Female : 1935 Patient Status: Inpatient Patient Location: [address] [place] [address] Study Date: 11/21/2017 02:36 PM Height: 65 in Weight: 116 lb BSA: 1.6 m2 Procedure: A complete two-dimensional transthoracic echocardiogram was performed (2D, M-mode, spectral and color flow Doppler). The study was technically adequate with some images being suboptimal in quality. Reason For Study: dizziness, syncope Ordering Physician: JANUSZ PABLO Performed By: Ana María Stroud Interpretation Summary The left ventricular ejection fraction is normal. There is borderline concentric left ventricular hypertrophy. The left ventricle is grossly normal size. Doppler measurements suggest pseudonormalized left ventricular relaxation, which is associated with grade II/IV or mild to moderate diastolic dysfunction Wall motion cannot be accurately commented on, but no definite regional wall motion abnormalities noted. The right ventricular systolic function is normal. The left atrium is mildly dilated. There is a mild amount of mitral regurgitation There is no mitral valve stenosis. No aortic regurgitation is present. There is no aortic valve stenosis There is a trace to mild amount of tricuspid regurgitation There is mild pulmonary hypertension by echo Right ventricular systolic pressure is estimated to be elevated at 30- 40mmHg. Minimal pericardial effusion. MMode/2D Measurements & Calculations RVDd: 3.0 cm LVIDd: 3.6 cm FS: 32.6 % Ao root diam: 3.1 cm IVSd: 1.0 cm LVIDs: 2.4 cm EDV(Teich): 55.3 ml LVPWd: 0.96 cm ESV(Teich): 21.1 ml Ao root area: 7.7 cm2 EF(Teich): 61.9 % LA dimension: 4.4 cm Doppler Measurements & Calculations MV E max parth: MV P1/2t max parth: Ao V2 max: LV V1 max P.7 cm/sec 59.7 cm/sec 122.2 cm/sec 4.9 mmHg MV A max parth: MV P1/2t: 128.0 msec Ao max PG: LV V1 max: 92.8 cm/sec 6.0 mmHg 110.6 cm/sec MV E/A: 0.63 MVA(P1/2t): 1.7 cm2 MV dec slope: 136.7 cm/sec2 MV dec time: 0.42 sec PA V2 max: PI end-d parth: TR max parth: 117.0 cm/sec 101.8 cm/sec 231.7 cm/sec PA max PG: TR max P.5 mmHg 21.5 mmHg Left Ventricle The left ventricle is grossly normal size. There is borderline concentric left ventricular hypertrophy. The left ventricular ejection fraction is normal. Doppler measurements suggest pseudonormalized left ventricular relaxation, which is associated with grade II/IV or mild to moderate diastolic dysfunction. Wall motion cannot be accurately commented on, but no definite regional wall motion abnormalities noted. Right Ventricle The right ventricle is grossly normal size. There is normal right ventricular wall thickness. The right ventricular systolic function is normal. Atria The right atrium is normal. The left atrium is mildly dilated. Interarterial septum not well visualized and not well dopplered. Cannot comment on ASD/PFO presence. Mitral Valve The mitral valve leaflets are sclerotic, but show no functional abnormalities. There is no mitral valve stenosis. There is a mild amount of mitral regurgitation. Aortic Valve The aortic valve is grossly normal. There is no aortic valve stenosis. No aortic regurgitation is present. Tricuspid Valve The tricuspid valve is not well visualized, but is grossly normal. There is no tricuspid stenosis. There is a trace to mild amount of tricuspid regurgitation. There is mild pulmonary hypertension by echo. Right ventricular systolic pressure is estimated to be elevated at 30-40mmHg. Pulmonic Valve The pulmonic valve is not well visualized. Great Vessels The aortic root is not well visualized but is probably normal size. The inferior vena cava appeared normal and decreased < 50% with respiration (RAP 10-15 mmHg). Effusions Minimal pericardial effusion. : JANUSZ PABLO > Lino Wagner
[2017-11-22] MEDS: HYDRALAZINE HCL INJ/PF 20 MG/1 ML SDV IV PRN ×2 (04:22→09:08)
[2017-11-22 05:11] LABS: ABSOLUTE EOSINOPHILS # (AUTO) 0.1 10^3/uL (0.0-0.6); ABSOLUTE LYMPHOCYTES (AUTO) 0.7 10^3/uL (0.5-4.7); ABSOLUTE MONOCYTES (AUTO) 0.6 10^3/uL (0.1-1.4); ABSOLUTE NEUT (AUTO) 8.3 10^3/uL (1.7-8.2); BASOPHILS % (AUTO) 0.4 % (0-2); EOSINOPHILS % (AUTO) 0.6 % (0-6); HEMATOCRIT 27.8 % (36.0-47.0); HEMOGLOBIN 8.9 g/dL (12.0-15.5); LYMPHOCYTES % (AUTO) 7.4 % (13-45); MEAN CORPUSCULAR HEMOGLOBIN 24.3 pg (27.0-33.4); MEAN CORPUSCULAR HGB CONC 31.9 g/dL (32.0-36.0); MEAN CORPUSCULAR VOLUME 76 fl (80-97); MONOCYTES % (AUTO) 6.2 % (3-13); PLATELET COUNT 400 10^3/uL (150-450); RED BLOOD COUNT 3.65 10^6/uL (3.72-5.28); RED CELL DISTRIBUTION WIDTH 17.7 % (11.5-14.0); SEGMENTED NEUTROPHILS % (AUTO) 85.4 % (42-78); TOTAL CELLS COUNTED % (AUTO) 100 %; WHITE BLOOD COUNT 9.7 10^3/uL (4.0-10.5)
[2017-11-22 05:35] LABS: ANION GAP 7 (5-19); BLOOD UREA NITROGEN 9 mg/dL (7-20); CALCIUM 9.1 mg/dL (8.4-10.2); CARBON DIOXIDE 28 mmol/L (22-30); CHLORIDE 99 mmol/L (98-107); GLUCOSE 90 mg/dL (75-110); POTASSIUM 3.2 mmol/L (3.6-5.0); SODIUM 133.9 mmol/L (137-145)
[2017-11-22] MEDS: ACETAMINOPHEN 325 MG TABLET PO PRN ×3 (09:05→17:54)
[2017-11-22] MEDS: ENOXAPARIN SODIUM INJ 40 MG/0.4 ML DISP.SYRIN SUBCUT SCH (09:08)
[2017-11-22] MEDS: DOCUSATE SODIUM 100 MG CAPSULE PO SCH (09:10)
[2017-11-22] MEDS: HYDRALAZINE HCL 25 MG TABLET PO SCH ×2 (11:35→23:08)
[2017-11-22] MEDS ORDERED: (PENDING PHARMACY ID) (Ondansetron Hcl [Zofran 4 Mg Tablet] 4 MG) PO PRN (13:46)
[2017-11-22] MEDS ORDERED: ONDANSETRON 4 MG TAB.RAPDIS PO PRN (13:51)
[2017-11-22] MEDS ORDERED: FLUCONAZOLE 100 MG TABLET PO ONE (14:00)
[2017-11-22] MEDS ORDERED: PANTOPRAZOLE SODIUM 40 MG VIAL IV ONE (14:15)
--- NOTE | 2017-11-22 15:06 | PDOC PROGRESS REPORT ---
Subjective Progress Note for:: 11/22/17 Subjective:: Patient is a 82-year-old woman who presented to the hospital with syncope. MRI of the brain on November 21, 2017 with no acute findings besides atrophy and chronic microvascular ischemic change. CT chest this admission with questionable lung mass. Patient was of the findings and she stated at her age she would not want any more procedures done. She reports having bladder pressure. Reason For Visit: SYNCOPE, ANEMIA,LUNG MASS Physical Exam Vital Signs: Temp Pulse Resp BP Pulse Ox 98.5 F 87 16 132/55 H 96 11/22/17 11:30 11/22/17 12:30 11/22/17 12:30 11/22/17 11:30 11/22/17 12:30 Intake & Output 11/21/17 11/22/17 11/23/17 06:59 06:59 06:59 Intake Total 1725 200 Balance 1725 200 Weight 53.6 kg General appearance: PRESENT: cooperative, thin - thin elderly woman, other Head exam: PRESENT: atraumatic, normocephalic Eye exam: PRESENT: EOMI Mouth exam: PRESENT: moist Neck exam: PRESENT: full ROM Respiratory exam: PRESENT: clear to auscultation shirley, unlabored. ABSENT: accessory muscle use Cardiovascular exam: PRESENT: RRR GI/Abdominal exam: PRESENT: normal bowel sounds, soft Rectal exam: PRESENT: deferred Extremities exam: PRESENT: full ROM Neurological exam: PRESENT: alert, awake, oriented to person, oriented to time, oriented to situation Psychiatric exam: PRESENT: appropriate affect Skin exam: PRESENT: dry, warm Results Laboratory Results: 11/22/17 04:09 11/22/17 04:09 11/22/17 11/22/17 11/22/17 04:09 04:09 06:35 WBC 9.7 RBC 3.65 L Hgb 8.9 L Hct 27.8 L MCV 76 L MCH 24.3 L MCHC 31.9 L RDW 17.7 H Plt Count 400 Seg Neutrophils % 85.4 H Lymphocytes % 7.4 L Monocytes % 6.2 Eosinophils % 0.6 Basophils % 0.4 Absolute Neutrophils 8.3 H Absolute Lymphocytes 0.7 Absolute Monocytes 0.6 Absolute Eosinophils 0.1 Absolute Basophils 0.0 Sodium 133.9 L Potassium 3.2 L Chloride 99 Carbon Dioxide 28 Anion Gap 7 BUN 9 Creatinine 0.78 Est GFR ( Amer) > 60 Est GFR (Non-Af Amer) > 60 Glucose 90 Calcium 9.1 Stool Occult Blood NEGATIVE 11/22/17 04:09 Troponin I 0.188 Impressions: Carotid Doppler Study 11/21/17 00:00 IMPRESSION: NO HEMODYNAMICALLY SIGNIFICANT STENOSIS. Chest CT 11/21/17 00:00 IMPRESSION: There are couple small spiculated nodules in the right lung apex as noted above which may only represent parenchymal scarring however the possibility of a neoplastic process cannot be excluded. No acute consolidations or pleural effusions are identified. Hepatic and splenic masses as noted above which could be related to lymphoma or metastatic disease. Periaortic adenopathy is identified. There is some nodularity of the left adrenal gland as noted above. A dedicated abdominal and pelvic CT scan may be of value for further evaluation. Other findings as noted above Head MRI 11/21/17 00:00 IMPRESSION: ATROPHY AND CHRONIC MICRO-VASCULAR ISCHEMIC CHANGES. OTHERWISE NORMAL MRI OF THE BRAIN WITHOUT INTRAVENOUS GADOLINIUM CONTRAST. EVIDENCE OF ACUTE STROKE: NO. Chest X-Ray 11/21/17 03:16 IMPRESSION: 1. Small left upper lobar pneumonia/atelectasis. 2. Wpie-yh-mamukbhl vertebral compression deformity at the thoracic lumbar junction. Knee X-Ray 11/21/17 03:16 IMPRESSION: No acute findings. 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 Pelvis X-Ray 11/21/17 03:16 IMPRESSION: No acute findings. Right total hip arthroplasty. Cervical Spine CT 11/21/17 03:17 IMPRESSION: 1. Spiculated lung lesions partially imaged; cannot exclude malignancy. Recommend contrast CT of the chest. 2. 0.2 cm degenerative C6 and C7 anterolisthesis. Head CT 11/21/17 03:17 IMPRESSION: Moderate scalp swelling. Else, no acute findings. Assessment & Plan - Diagnosis (1) Syncope Qualifiers: Syncope type: unspecified Qualified Code(s): R55 - Syncope and collapse Is this a current diagnosis for this admission?: Yes Plan: MRI brain negative for acute findings. (2) Mass of lung Is this a current diagnosis for this admission?: Yes Plan: Daughter was updated. Patient is not interested in any further diagnostic testing at this time. (3) Anemia Qualifiers: Anemia type: iron deficiency Iron deficiency anemia type: chronic blood loss Qualified Code(s): D50.0 - Iron deficiency anemia secondary to blood loss (chronic) Is this a current diagnosis for this admission?: Yes Plan: The daughter reports that she has been referred to hematology. She was given IV iron this admission. (4) Severe protein-calorie malnutrition Is this a current diagnosis for this admission?: Yes Plan: Encourage good p.o. intake as tolerated Protein supplement (5) Fall Qualifiers: Encounter type: initial encounter Qualified Code(s): W19.XXXA - Unspecified fall, initial encounter Is this a current diagnosis for this admission?: Yes Plan: Fall precaution Continue physical therapy (6) DVT prophylaxis Is this a current diagnosis for this admission?: Yes Plan: On Lovenox - Time Time Spent with patient: 25-34 minutes - Including phone call with family Anticipated discharge: Home with Homehealth Within: within 24 hours - depending on PT assessment
[2017-11-22] MEDS: CIPROFLOXACIN HCL 500 MG TABLET PO SCH (17:58)
[2017-11-23] MEDS ORDERED: POTASSIUM CHLORIDE 10 MEQ TABLET.SA PO ONE (07:36)
[2017-11-23] MEDS ORDERED: LANSOPRAZOLE 30 MG TAB.RAP.DR PO ONE (08:00)
[2017-11-23] MEDS: ENOXAPARIN SODIUM INJ 40 MG/0.4 ML DISP.SYRIN SUBCUT SCH (09:29)
[2017-11-23] MEDS: LOSARTAN POTASSIUM 50 MG TABLET PO SCH (09:29)
[2017-11-23] MEDS: ESCITALOPRAM OXALATE 10 MG TABLET PO SCH (09:30)
[2017-11-23] MEDS: LORATADINE 10 MG TABLET PO SCH (09:30)
[2017-11-23] MEDS: HYDRALAZINE HCL 25 MG TABLET PO SCH ×2 (09:31→21:19)
[2017-11-23] MEDS: CIPROFLOXACIN HCL 500 MG TABLET PO SCH ×2 (09:31→17:07)
[2017-11-23] MEDS: DOCUSATE SODIUM 100 MG CAPSULE PO SCH (09:53)
[2017-11-23] MEDS ORDERED: (PENDING PHARMACY ID) (Fexofenadine Hcl [Allegra] 60 MG) PO SCH (10:00)
[2017-11-23] MEDS ORDERED: FAMOTIDINE 20 MG TABLET PO SCH (10:00)
[2017-11-23] MEDS ORDERED: PANTOPRAZOLE SODIUM 40 MG VIAL IV SCH (10:00)
[2017-11-23] MEDS: ACETAMINOPHEN 325 MG TABLET PO PRN (12:13)
[2017-11-23] MEDS: LANSOPRAZOLE 30 MG TAB.RAP.DR PO SCH (17:08)
--- NOTE | 2017-11-23 17:46 | PDOC PROGRESS REPORT ---
Subjective Progress Note for:: 11/23/17 Subjective:: Patient is a 82-year-old woman who presented to the hospital with syncope. MRI of the brain on November 21, 2017 with no acute findings besides atrophy and chronic microvascular ischemic change. CT chest this admission with questionable lung mass. Patient was of the findings and she stated at her age she would not want any more procedures done. Seen this am, she reports less bladder pressure and the daughter called and updated Reason For Visit: SYNCOPE, ANEMIA,LUNG MASS Physical Exam Vital Signs: Temp Pulse Resp BP Pulse Ox 98.4 F 76 16 140/60 H 99 11/23/17 15:07 11/23/17 15:07 11/23/17 15:07 11/23/17 15:07 11/23/17 15:07 Intake & Output 11/22/17 11/23/17 11/24/17 06:59 06:59 06:59 Intake Total 1725 1228 700 Balance 1725 1228 700 Weight 53.6 kg 56.7 kg General appearance: PRESENT: no acute distress, thin, other - frail elderly woman Head exam: PRESENT: atraumatic, normocephalic Eye exam: PRESENT: EOMI Mouth exam: PRESENT: moist, neck supple Neck exam: PRESENT: full ROM Respiratory exam: PRESENT: clear to auscultation shirley, unlabored GI/Abdominal exam: PRESENT: normal bowel sounds, soft Rectal exam: PRESENT: deferred Extremities exam: PRESENT: full ROM Neurological exam: PRESENT: alert, oriented to person, oriented to time, oriented to situation Skin exam: PRESENT: dry, warm Results Laboratory Results: 11/22/17 04:09 11/22/17 04:09 11/22/17 04:09 Troponin I 0.188 Impressions: Carotid Doppler Study 11/21/17 00:00 IMPRESSION: NO HEMODYNAMICALLY SIGNIFICANT STENOSIS. Chest CT 11/21/17 00:00 IMPRESSION: There are couple small spiculated nodules in the right lung apex as noted above which may only represent parenchymal scarring however the possibility of a neoplastic process cannot be excluded. No acute consolidations or pleural effusions are identified. Hepatic and splenic masses as noted above which could be related to lymphoma or metastatic disease. Periaortic adenopathy is identified. There is some nodularity of the left adrenal gland as noted above. A dedicated abdominal and pelvic CT scan may be of value for further evaluation. Other findings as noted above Head MRI 11/21/17 00:00 IMPRESSION: ATROPHY AND CHRONIC MICRO-VASCULAR ISCHEMIC CHANGES. OTHERWISE NORMAL MRI OF THE BRAIN WITHOUT INTRAVENOUS GADOLINIUM CONTRAST. EVIDENCE OF ACUTE STROKE: NO. Chest X-Ray 11/21/17 03:16 IMPRESSION: 1. Small left upper lobar pneumonia/atelectasis. 2. Nmbo-bo-[id number] vertebral compression deformity at the thoracic lumbar junction. Knee X-Ray 11/21/17 03:16 IMPRESSION: No acute findings. 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 Pelvis X-Ray 11/21/17 03:16 IMPRESSION: No acute findings. Right total hip arthroplasty. Cervical Spine CT 11/21/17 03:17 IMPRESSION: 1. Spiculated lung lesions partially imaged; cannot exclude malignancy. Recommend contrast CT of the chest. 2. 0.2 cm degenerative C6 and C7 anterolisthesis. Head CT 11/21/17 03:17 IMPRESSION: Moderate scalp swelling. Else, no acute findings. Assessment & Plan - Diagnosis (1) Syncope Qualifiers: Syncope type: unspecified Qualified Code(s): R55 - Syncope and collapse Is this a current diagnosis for this admission?: Yes Plan: MRI brain negative for acute findings. (2) Mass of lung Is this a current diagnosis for this admission?: Yes Plan: Patient is not interested in any further diagnostic testing at this time. (3) Anemia Qualifiers: Anemia type: iron deficiency Iron deficiency anemia type: chronic blood loss Qualified Code(s): D50.0 - Iron deficiency anemia secondary to blood loss (chronic) Is this a current diagnosis for this admission?: Yes Plan: The daughter reports that she has been referred to hematology. Continue IV Fe supplement (4) Severe protein-calorie malnutrition Is this a current diagnosis for this admission?: Yes Plan: Encourage good p.o. intake as tolerated Protein supplement (5) Fall Qualifiers: Encounter type: initial encounter Qualified Code(s): W19.XXXA - Unspecified fall, initial encounter Is this a current diagnosis for this admission?: Yes Plan: Fall precaution Continue physical therapy She will need to go to a facility for rehab (6) Physical deconditioning Is this a current diagnosis for this admission?: Yes Plan: Plan for rehab Continue PT (7) DVT prophylaxis Is this a current diagnosis for this admission?: Yes Plan: On Lovenox
[2017-11-23] MEDS: IRON SUCROSE COMPLEX INJ/PF 100 MG/5 ML SDV IV SCH (21:19)
[2017-11-24] MEDS: ACETAMINOPHEN 325 MG TABLET PO PRN ×3 (01:12→21:11)
[2017-11-24] MEDS: LANSOPRAZOLE 30 MG TAB.RAP.DR PO SCH ×2 (05:19→17:14)
[2017-11-24 08:56] LABS: ANION GAP 9 (5-19); BLOOD UREA NITROGEN 11 mg/dL (7-20); CALCIUM 9.1 mg/dL (8.4-10.2); CARBON DIOXIDE 23 mmol/L (22-30); CHLORIDE 97 mmol/L (98-107); GLUCOSE 84 mg/dL (75-110); POTASSIUM 3.8 mmol/L (3.6-5.0); SODIUM 129.3 mmol/L (137-145)
[2017-11-24] MEDS: ENOXAPARIN SODIUM INJ 40 MG/0.4 ML DISP.SYRIN SUBCUT SCH (09:35)
[2017-11-24] MEDS: DOCUSATE SODIUM 100 MG CAPSULE PO SCH (09:35)
[2017-11-24] MEDS: ESCITALOPRAM OXALATE 10 MG TABLET PO SCH (09:35)
[2017-11-24] MEDS: LOSARTAN POTASSIUM 50 MG TABLET PO SCH (09:35)
[2017-11-24] MEDS: LORATADINE 10 MG TABLET PO SCH (09:35)
[2017-11-24] MEDS: CIPROFLOXACIN HCL 500 MG TABLET PO SCH ×2 (09:35→17:14)
[2017-11-24] MEDS: HYDRALAZINE HCL 25 MG TABLET PO SCH ×2 (09:35→21:10)
[2017-11-24] MEDS: SIMETHICONE 80 MG TAB.CHEW PO PRN (14:20)
--- NOTE | 2017-11-24 19:00 | PDOC PROGRESS REPORT ---
Subjective Progress Note for:: 11/24/17 Subjective:: Patient is a 82-year-old woman who presented to the hospital with syncope. MRI of the brain on November 21, 2017 with no acute findings besides atrophy and chronic microvascular ischemic change. CT chest this admission with questionable lung mass. Patient was told of the findings and she stated at her age she would not want any more procedures done.Seen this am, she wanted medications for gas and she is not happy about going to rehab. Her daughter Ms. Feliz has been updated on the phone. Reason For Visit: SYNCOPE Physical Exam Vital Signs: Temp Pulse Resp BP Pulse Ox 97.6 F 88 16 148/64 H 97 11/24/17 15:31 11/24/17 15:31 11/24/17 15:31 11/24/17 15:31 11/24/17 15:31 Intake & Output 11/23/17 11/24/17 11/25/17 06:59 06:59 06:59 Intake Total 432 Balance 432 General appearance: PRESENT: no acute distress, thin, other - frail elderly woman Head exam: PRESENT: atraumatic, normocephalic Eye exam: PRESENT: EOMI Mouth exam: PRESENT: neck supple Neck exam: PRESENT: full ROM Respiratory exam: PRESENT: clear to auscultation shirley, unlabored Cardiovascular exam: PRESENT: RRR GI/Abdominal exam: PRESENT: normal bowel sounds, soft Rectal exam: PRESENT: deferred Extremities exam: PRESENT: full ROM Neurological exam: PRESENT: alert, oriented to person, oriented to time, oriented to situation Psychiatric exam: PRESENT: anxious Skin exam: PRESENT: dry, warm Results Impressions: Carotid Doppler Study 11/21/17 00:00 IMPRESSION: NO HEMODYNAMICALLY SIGNIFICANT STENOSIS. Chest CT 11/21/17 00:00 IMPRESSION: There are couple small spiculated nodules in the right lung apex as noted above which may only represent parenchymal scarring however the possibility of a neoplastic process cannot be excluded. No acute consolidations or pleural effusions are identified. Hepatic and splenic masses as noted above which could be related to lymphoma or metastatic disease. Periaortic adenopathy is identified. There is some nodularity of the left adrenal gland as noted above. A dedicated abdominal and pelvic CT scan may be of value for further evaluation. Other findings as noted above Head MRI 11/21/17 00:00 IMPRESSION: ATROPHY AND CHRONIC MICRO-VASCULAR ISCHEMIC CHANGES. OTHERWISE NORMAL MRI OF THE BRAIN WITHOUT INTRAVENOUS GADOLINIUM CONTRAST. EVIDENCE OF ACUTE STROKE: NO. Chest X-Ray 11/21/17 03:16 IMPRESSION: 1. Small left upper lobar pneumonia/atelectasis. 2. Iant-es-[id number] vertebral compression deformity at the thoracic lumbar junction. Knee X-Ray 11/21/17 03:16 IMPRESSION: No acute findings. 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 Pelvis X-Ray 11/21/17 03:16 IMPRESSION: No acute findings. Right total hip arthroplasty. Cervical Spine CT 11/21/17 03:17 IMPRESSION: 1. Spiculated lung lesions partially imaged; cannot exclude malignancy. Recommend contrast CT of the chest. 2. 0.2 cm degenerative C6 and C7 anterolisthesis. Head CT 11/21/17 03:17 IMPRESSION: Moderate scalp swelling. Else, no acute findings. Assessment & Plan - Diagnosis (1) Iron deficiency anemia Qualifiers: Iron deficiency anemia type: inadequate dietary iron intake Qualified Code( s): D50.8 - Other iron deficiency anemias Is this a current diagnosis for this admission?: Yes Plan: Prior this admission she was referred to hematology for further management. Started on IV iron replacement this admission. Continue course. (2) Syncope Qualifiers: Syncope type: unspecified Qualified Code(s): R55 - Syncope and collapse Is this a current diagnosis for this admission?: Yes Plan: MRI brain negative for acute findings. (3) Mass of lung Is this a current diagnosis for this admission?: Yes Plan: Patient is not interested in any further diagnostic testing at this time. (4) Severe protein-calorie malnutrition Is this a current diagnosis for this admission?: Yes Plan: Encourage good p.o. intake as tolerated Protein supplement (5) Fall Qualifiers: Encounter type: initial encounter Qualified Code(s): W19.XXXA - Unspecified fall, initial encounter Is this a current diagnosis for this admission?: Yes Plan: Fall precaution Continue physical therapy Case management on board for referral (6) Physical deconditioning Is this a current diagnosis for this admission?: Yes Plan: Continue physical therapy and plan for rehab (7) Chronic hyponatremia Is this a current diagnosis for this admission?: Yes Plan: Will try gentle IVF hydration with NS ON and re-assess in am if it needs to be continued (8) DVT prophylaxis Is this a current diagnosis for this admission?: Yes Plan: On Lovenox - Time Time Spent with patient: 15-24 minutes Anticipated discharge: Acute Rehab - Inpatient Certification Medical Necessity: Need For IV Fluids, Other - IV Iron for Fe deficiency anemia - in setting of poor PO intake and deconditioning
[2017-11-24] MEDS ORDERED: NORMAL SALINE 1000 ML 1,000 ML IV PRN (19:01)
[2017-11-24] MEDS: IRON SUCROSE COMPLEX INJ/PF 100 MG/5 ML SDV IV SCH (22:02)
[2017-11-24 23:02] LABS: ABSOLUTE EOSINOPHILS # (AUTO) 0.1 10^3/uL (0.0-0.6); ABSOLUTE LYMPHOCYTES (AUTO) 0.6 10^3/uL (0.5-4.7); ABSOLUTE MONOCYTES (AUTO) 0.7 10^3/uL (0.1-1.4); ABSOLUTE NEUT (AUTO) 7.5 10^3/uL (1.7-8.2); BASOPHILS % (AUTO) 0.2 % (0-2); EOSINOPHILS % (AUTO) 0.7 % (0-6); HEMATOCRIT 23.8 % (36.0-47.0); LYMPHOCYTES % (AUTO) 7.2 % (13-45); MEAN CORPUSCULAR HEMOGLOBIN 24.9 pg (27.0-33.4); MEAN CORPUSCULAR HGB CONC 32.6 g/dL (32.0-36.0); MEAN CORPUSCULAR VOLUME 76 fl (80-97); MONOCYTES % (AUTO) 8.3 % (3-13); PLATELET COUNT 361 10^3/uL (150-450); RED BLOOD COUNT 3.12 10^6/uL (3.72-5.28); RED CELL DISTRIBUTION WIDTH 17.8 % (11.5-14.0); SEGMENTED NEUTROPHILS % (AUTO) 83.6 % (42-78); TOTAL CELLS COUNTED % (AUTO) 100 %
[2017-11-24 23:06] LABS: HEMOGLOBIN 7.8 g/dL (12.0-15.5)
[2017-11-25] MEDS: SIMETHICONE 80 MG TAB.CHEW PO PRN (00:25)
[2017-11-25] MEDS: ACETAMINOPHEN 325 MG TABLET PO PRN ×2 (01:28→23:04)
[2017-11-25] MEDS: HYDRALAZINE HCL INJ/PF 20 MG/1 ML SDV IV PRN (03:18)
[2017-11-25] MEDS: LANSOPRAZOLE 30 MG TAB.RAP.DR PO SCH ×2 (06:04→17:55)
[2017-11-25 07:21] LABS: ABSOLUTE EOSINOPHILS # (AUTO) 0.1 10^3/uL (0.0-0.6); ABSOLUTE LYMPHOCYTES (AUTO) 0.5 10^3/uL (0.5-4.7); ABSOLUTE MONOCYTES (AUTO) 0.6 10^3/uL (0.1-1.4); ABSOLUTE NEUT (AUTO) 6.2 10^3/uL (1.7-8.2); BASOPHILS % (AUTO) 0.4 % (0-2); EOSINOPHILS % (AUTO) 1.5 % (0-6); HEMATOCRIT 26.3 % (36.0-47.0); HEMOGLOBIN 8.4 g/dL (12.0-15.5); LYMPHOCYTES % (AUTO) 6.1 % (13-45); MEAN CORPUSCULAR HEMOGLOBIN 24.4 pg (27.0-33.4); MEAN CORPUSCULAR HGB CONC 32.1 g/dL (32.0-36.0); MEAN CORPUSCULAR VOLUME 76 fl (80-97); MONOCYTES % (AUTO) 8.6 % (3-13); PLATELET COUNT 371 10^3/uL (150-450); RED BLOOD COUNT 3.46 10^6/uL (3.72-5.28); RED CELL DISTRIBUTION WIDTH 17.6 % (11.5-14.0); SEGMENTED NEUTROPHILS % (AUTO) 83.4 % (42-78); TOTAL CELLS COUNTED % (AUTO) 100 %; WHITE BLOOD COUNT 7.5 10^3/uL (4.0-10.5)
[2017-11-25 07:37] LABS: ANION GAP 7 (5-19); BLOOD UREA NITROGEN 11 mg/dL (7-20); CARBON DIOXIDE 23 mmol/L (22-30); CHLORIDE 99 mmol/L (98-107); GLUCOSE 78 mg/dL (75-110); POTASSIUM 3.7 mmol/L (3.6-5.0); SODIUM 128.8 mmol/L (137-145)
[2017-11-25] MEDS: HYDRALAZINE HCL 25 MG TABLET PO SCH ×2 (10:39→23:03)
[2017-11-25] MEDS: ENOXAPARIN SODIUM INJ 30 MG/0.3 ML DISP.SYRIN SUBCUT SCH (10:40)
[2017-11-25] MEDS: LORATADINE 10 MG TABLET PO SCH (10:40)
[2017-11-25] MEDS: DOCUSATE SODIUM 100 MG CAPSULE PO SCH (10:41)
[2017-11-25] MEDS: LOSARTAN POTASSIUM 50 MG TABLET PO SCH (10:41)
[2017-11-25] MEDS: ESCITALOPRAM OXALATE 10 MG TABLET PO SCH (10:42)
[2017-11-25] MEDS: CIPROFLOXACIN HCL 500 MG TABLET PO SCH ×2 (10:42→17:55)
--- NOTE | 2017-11-25 10:46 | PDOC PROGRESS REPORT ---
Subjective Progress Note for:: 11/25/17 Subjective:: The patient is an 82-year-old female who was admitted on 11/24/2017 with a primary diagnosis of syncope. The patient had an MRI of the brain showing no acute findings. Echocardiogram demonstrated grade 2 diastolic dysfunction with mild pulmonary hypertension. CT scan of the chest demonstrated small spiculated lesions with question of lymphoma versus metastases to the liver and spleen. When I discussed this with the patient today she had several questions regarding her prognosis. We discussed her goals of care. She agrees to a consultation with hematology oncology. Reason For Visit: SYNCOPE Physical Exam Vital Signs: Temp Pulse Resp BP Pulse Ox 97.8 F 75 16 161/57 H 97 11/25/17 07:21 11/25/17 07:21 11/25/17 07:21 11/25/17 07:21 11/25/17 07:21 Intake & Output 11/24/17 11/25/17 11/26/17 06:59 06:59 06:59 Intake Total 552 Balance 552 Weight 54.2 kg Additional comments: The patient appear petite and frail. She is thin with evidence of malnutrition. Her mentation and cognition are excellent. She was able to recall all of the details of her current admission. Other than temporal wasting her facial appearance is unremarkable. Her lungs are noted to be clear to auscultation bilaterally. Her cardiac exam is irregular at times. I do not appreciate any murmurs, gallops or rubs. Her lungs are clear to auscultation bilaterally. Her abdominal exam is soft. Bowel sounds are present. She does not have guarding or rebound noted and there are no hernias or masses present. The lower extremities are warm to touch without any pitting edema. The skin is clean, dry, warm and intact. Results Laboratory Results: 11/25/17 06:52 11/25/17 06:52 11/24/17 11/25/17 11/25/17 22:53 06:52 06:52 WBC 9.0 7.5 RBC 3.12 L 3.46 L Hgb 7.8 L 8.4 L Hct 23.8 L 26.3 L MCV 76 L 76 L MCH 24.9 L 24.4 L MCHC 32.6 32.1 RDW 17.8 H 17.6 H Plt Count 361 371 Seg Neutrophils % 83.6 H 83.4 H Lymphocytes % 7.2 L 6.1 L Monocytes % 8.3 8.6 Eosinophils % 0.7 1.5 Basophils % 0.2 0.4 Absolute Neutrophils 7.5 6.2 Absolute Lymphocytes 0.6 0.5 Absolute Monocytes 0.7 0.6 Absolute Eosinophils 0.1 0.1 Absolute Basophils 0.0 0.0 Sodium 128.8 L Potassium 3.7 Chloride 99 Carbon Dioxide 23 Anion Gap 7 BUN 11 Creatinine 0.91 Est GFR ( Amer) > 60 Est GFR (Non-Af Amer) 59 L Glucose 78 Calcium 9.0 Impressions: Carotid Doppler Study 11/21/17 00:00 IMPRESSION: NO HEMODYNAMICALLY SIGNIFICANT STENOSIS. Chest CT 11/21/17 00:00 IMPRESSION: There are couple small spiculated nodules in the right lung apex as noted above which may only represent parenchymal scarring however the possibility of a neoplastic process cannot be excluded. No acute consolidations or pleural effusions are identified. Hepatic and splenic masses as noted above which could be related to lymphoma or metastatic disease. Periaortic adenopathy is identified. There is some nodularity of the left adrenal gland as noted above. A dedicated abdominal and pelvic CT scan may be of value for further evaluation. Other findings as noted above Head MRI 11/21/17 00:00 IMPRESSION: ATROPHY AND CHRONIC MICRO-VASCULAR ISCHEMIC CHANGES. OTHERWISE NORMAL MRI OF THE BRAIN WITHOUT INTRAVENOUS GADOLINIUM CONTRAST. EVIDENCE OF ACUTE STROKE: NO. Chest X-Ray 11/21/17 03:16 IMPRESSION: 1. Small left upper lobar pneumonia/atelectasis. 2. Aiba-kc-rvqidxad vertebral compression deformity at the thoracic lumbar junction. Knee X-Ray 11/21/17 03:16 IMPRESSION: No acute findings. 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 Pelvis X-Ray 11/21/17 03:16 IMPRESSION: No acute findings. Right total hip arthroplasty. Cervical Spine CT 11/21/17 03:17 IMPRESSION: 1. Spiculated lung lesions partially imaged; cannot exclude malignancy. Recommend contrast CT of the chest. 2. 0.2 cm degenerative C6 and C7 anterolisthesis. Head CT 11/21/17 03:17 IMPRESSION: Moderate scalp swelling. Else, no acute findings. Assessment & Plan - Diagnosis (1) Chronic hyponatremia Is this a current diagnosis for this admission?: Yes Plan: Sodium today is 128.8. (2) DVT prophylaxis Is this a current diagnosis for this admission?: Yes Plan: Patient is receiving Lovenox (3) Fall Qualifiers: Encounter type: initial encounter Qualified Code(s): W19.XXXA - Unspecified fall, initial encounter Is this a current diagnosis for this admission?: Yes Plan: Continue efforts at reconditioning with strength training (4) Iron deficiency anemia Qualifiers: Iron deficiency anemia type: inadequate dietary iron intake Qualified Code( s): D50.8 - Other iron deficiency anemias Is this a current diagnosis for this admission?: Yes Plan: Continue supplemental iron (5) Lung mass Is this a current diagnosis for this admission?: Yes Plan: Today, I explained the findings on the patient's CT scan. She has many questions regarding what to expect and her overall prognosis. We discussed her overall goals of care. I told her that going forward she needs to discuss with her family what her goals of care are. Palliative care may in fact be very reasonable. I did place a hematology oncology consult for clarification of diagnosis, goals of care, etc. No biopsy has been done and therefore at this point in time we are speculating on the patient's prognosis. (6) Physical deconditioning Is this a current diagnosis for this admission?: Yes Plan: Continue physical therapy. (7) Severe protein-calorie malnutrition Is this a current diagnosis for this admission?: Yes Plan: Continue supplements. (8) Syncope Qualifiers: Syncope type: unspecified Qualified Code(s): R55 - Syncope and collapse Is this a current diagnosis for this admission?: Yes Plan: The patient's syncope was likely related to anemia, weakness, orthostasis and possibly a vagal event. - Time Time Spent with patient: 25-34 minutes - Inpatient Certification Medical Necessity: Risk of Complication if Not Cared For in Hospital - Goal is to transfer the patient to a skilled facility. She asked if this is reasonable in light of the fact that she may have cancer. I told her that is perfectly reasonable for us to try to optimize her care going forward.
--- NOTE | 2017-11-25 17:32 | PDOC CONSULTATION ---
Consultation Consult Date: 11/25/17 Consult reason:: Hematology/Oncology consultation was requested for abnormal liver and spleen on recent scans suspicious for cancer. History of Present Illness Admission Date/PCP: 11/24/17 09:50 NADER ROSS MD History of Present Illness: KEARA FARAH is a 82 year old female who presented to the emergency room with complaints of feeling dizzy on getting up to the used to bathroom during the night. Said she did lose consciousness for a few seconds. She was unable to get up by herself and was helped up by her daughter. She denies any associated palpitations chest pain nausea vomiting and denies any incontinence. There apparently was also no seizure activity. Patient gives a history of such dizziness before in June 2017 was she did not come to the ER as this resolved spontaneously. States she had been told that she was iron deficient and she was supposed to have been started on iron infusion this week. In the ED, she was found to have lung, liver and spleen lesions on CT suspicious for cancer. Today, she states that she is feeling better. She asks if she will have another iron infusion. Past Medical History Cardiac Medical History: Reports: Myocardial Infarction - "old [place]" per Dr Zaragoza' s clearance, YRS AGO, NO STENTS, Hypertension - meds x 10 years Denies: Atrial Fibrillation, Congestive Heart Failure, Coronary Artery Disease, Hyperlipidema, Peripheral Vascular Disease, Heart Murmur Pulmonary Medical History: Denies: Asthma, Bronchitis, Chronic Obstructive Pulmonary Disease (COPD), Pneumonia, Tuberculosis Neurological Medical History: Denies: Seizures Renal/ Medical History: Denies: End Stage Renal Disease Malignancy Medical History: Reports: Breast Cancer - RT lumpectomy 2003 Denies: Cervical Cancer, Leukemia, Ovarian Cancer GI Medical History: Reports: Gastroesophageal Reflux Disease, Hiatal Hernia Denies: Crohn's Disease Musculoskeltal Medical History: Reports: Arthritis Denies: Fibromyalgia Psychiatric Medical History: Denies: Bipolar Disorder, Dementia, Depression, Post Traumatic Stress Disorder Hematology: Reports: Anemia - chronic & post-op RT JACQUELYN/THR, PRBC's required Denies: Hemophilia, Sickle Cell Disease Infectious Medical History: Denies: HIV Past Surgical History Past Surgical History: Reports: Appendectomy - as child, Cholecystectomy - lap, Mastectomy - lumpectomy RT, 2001, Orthopedic Surgery - right total hip, right femur Denies: Amputation, Section, Colostomy, Coronary Artery Bypass Graft , Gastric Bypass Surgery, Herniorrhaphy, Hysterectomy, Pacemaker, Tonsillectomy , Tubal Ligation Social History Lives with: Family Smoking Status: Former Smoker Number of Years Smokin,011 Frequency of Alcohol Use: None Hx Recreational Drug Use: No Drugs: None Hx Prescription Drug Abuse: No - Advance Directive Resuscitation Status: Do Not Resuscitate Family History Family History: Reviewed & Not Pertinent Parental Family History Reviewed: Yes - Father in his 40s of stomach cancer. Mother age 70 of acute leuk Children Family History Reviewed: Yes Sibling(s) Family History Reviewed.: Yes Medication/Allergy Home Medications: Dexlansoprazole [Dexilant 60 mg Capsule] 60 mg PO DAILY 11/21/17 Escitalopram Oxalate [Lexapro 10 mg Tablet] 10 mg PO DAILY 11/21/17 Fexofenadine HCl [Gloria] 60 mg PO DAILY 11/21/17 Losartan Potassium [Cozaar 50 mg Tablet] 50 mg PO DAILY 11/21/17 Ondansetron HCl [Zofran 4 mg Tablet] 4 mg PO Q6HP PRN 11/21/17 Allergies/Adverse Reactions: Sulfa (Sulfonamide Antibiotics) Allergy (Mild, Verified 07/29/17 08:13) rash levofloxacin [From Levaquin] Adverse Reaction (Mild, Verified 07/29/17 08:13) Nausea oxycodone HCl [From Percocet] Adverse Reaction (Mild, Verified 07/29/17 08:13) Nausea Review of Systems Constitutional: PRESENT: weakness. ABSENT: fever(s) Eyes: ABSENT: visual disturbances Ears: ABSENT: hearing changes Nose, Mouth, and Throat: ABSENT: sore throat Cardiovascular: ABSENT: chest pain Respiratory: ABSENT: dyspnea Gastrointestinal: PRESENT: abdominal pain Genitourinary: PRESENT: difficulty urinating Musculoskeletal: PRESENT: muscle weakness Neurological: PRESENT: dizziness, frequent falls Psychiatric: ABSENT: anxiety, depression Endocrine: PRESENT: polyuria Physical Exam Vital Signs: Temp Pulse Resp BP Pulse Ox 97.8 F 73 16 147/61 H 98 11/25/17 11:25 11/25/17 11:25 11/25/17 11:25 11/25/17 11:25 11/25/17 11:25 Intake & Output 11/24/17 11/25/17 11/26/17 06:59 06:59 06:59 Intake Total 552 0 Balance 552 0 Weight 54.2 kg General appearance: PRESENT: no acute distress, well-nourished Exam: 82 year old female. Head exam: PRESENT: atraumatic Eye exam: PRESENT: PERRLA Ear exam: PRESENT: normal external ear exam Mouth exam: PRESENT: moist Neck exam: ABSENT: lymphadenopathy, tenderness Respiratory exam: PRESENT: clear to auscultation shirley, unlabored Cardiovascular exam: PRESENT: RRR. ABSENT: systolic murmur Pulses: PRESENT: normal dorsalis pedis pul GI/Abdominal exam: PRESENT: soft, tenderness Extremities exam: ABSENT: pedal edema Musculoskeletal exam: PRESENT: normal inspection Neurological exam: PRESENT: alert, awake Psychiatric exam: PRESENT: appropriate affect Skin exam: PRESENT: normal color Results Laboratory Results: 11/25/17 06:52 11/25/17 06:52 11/24/17 11/25/17 11/25/17 22:53 06:52 06:52 WBC 9.0 7.5 RBC 3.12 L 3.46 L Hgb 7.8 L 8.4 L Hct 23.8 L 26.3 L MCV 76 L 76 L MCH 24.9 L 24.4 L MCHC 32.6 32.1 RDW 17.8 H 17.6 H Plt Count 361 371 Seg Neutrophils % 83.6 H 83.4 H Lymphocytes % 7.2 L 6.1 L Monocytes % 8.3 8.6 Eosinophils % 0.7 1.5 Basophils % 0.2 0.4 Absolute Neutrophils 7.5 6.2 Absolute Lymphocytes 0.6 0.5 Absolute Monocytes 0.7 0.6 Absolute Eosinophils 0.1 0.1 Absolute Basophils 0.0 0.0 Sodium 128.8 L Potassium 3.7 Chloride 99 Carbon Dioxide 23 Anion Gap 7 BUN 11 Creatinine 0.91 Est GFR ( Amer) > 60 Est GFR (Non-Af Amer) 59 L Glucose 78 Calcium 9.0 Impressions: Carotid Doppler Study 11/21/17 00:00 IMPRESSION: NO HEMODYNAMICALLY SIGNIFICANT STENOSIS. Chest CT 11/21/17 00:00 IMPRESSION: There are couple small spiculated nodules in the right lung apex as noted above which may only represent parenchymal scarring however the possibility of a neoplastic process cannot be excluded. No acute consolidations or pleural effusions are identified. Hepatic and splenic masses as noted above which could be related to lymphoma or metastatic disease. Periaortic adenopathy is identified. There is some nodularity of the left adrenal gland as noted above. A dedicated abdominal and pelvic CT scan may be of value for further evaluation. Other findings as noted above Head MRI 11/21/17 00:00 IMPRESSION: ATROPHY AND CHRONIC MICRO-VASCULAR ISCHEMIC CHANGES. OTHERWISE NORMAL MRI OF THE BRAIN WITHOUT INTRAVENOUS GADOLINIUM CONTRAST. EVIDENCE OF ACUTE STROKE: NO. Chest X-Ray 11/21/17 03:16 IMPRESSION: 1. Small left upper lobar pneumonia/atelectasis. 2. [id number] vertebral compression deformity at the thoracic lumbar junction. Knee X-Ray 11/21/17 03:16 IMPRESSION: No acute findings. 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 Pelvis X-Ray 11/21/17 03:16 IMPRESSION: No acute findings. Right total hip arthroplasty. Cervical Spine CT 11/21/17 03:17 IMPRESSION: 1. Spiculated lung lesions partially imaged; cannot exclude malignancy. Recommend contrast CT of the chest. 2. 0.2 cm degenerative C6 and C7 anterolisthesis. Head CT 11/21/17 03:17 IMPRESSION: Moderate scalp swelling. Else, no acute findings. Assessment & Plan - Diagnosis (1) Lung mass Is this a current diagnosis for this admission?: Yes Plan: The mass is non-specific and may be scar tissue. I would recommend repeat CT in 6-8 weeks, unless something else suspicious is found. Because of the abnormal Liver and spleen, I would recommend either MRI or CT of Liver and spleen. Patient does not wish to have MRI. Therefore. I will order CT. (2) Iron deficiency anemia Qualifiers: Iron deficiency anemia type: inadequate dietary iron intake Qualified Code( s): D50.8 - Other iron deficiency anemias Is this a current diagnosis for this admission?: Yes Plan: Iron sucrose has been ordered. I will be happy to follow CBC and ferritin levels after completion of her IV iron. Usual dose is 800-1000 mg or IV iron. Unsure when her last colonosocpy was. I would check hemoccult if not already done. I will defer to primary team. - Plan Summary Plan Summary: Thank you for this consultation. Dr. Ding will be covering over the weekend. Please call if needed.
[2017-11-25] MEDS: IRON SUCROSE COMPLEX INJ/PF 100 MG/5 ML SDV IV SCH (23:03)
--- NOTE | 2017-11-26 00:32 | RADIOLOGY REPORT (SQ) ---
EXAM DESCRIPTION: CT ABDOMEN IV CONTRAST ONLY COMPLETED DATE/TIME: 11/25/2017 8:52 pm REASON FOR STUDY: Dedicated Liver and Spleen re: prior abnormal scan COMPARISON: None. TECHNIQUE: CT scan of the abdomen performed with intravenous and no oral contrast using helical scan toby technique with dynamic intravenous contrast injection. Images reviewed with lung, soft tissue, a nd bone windows. Reconstructed coronal and sagittal MPR images reviewed. Delayed images for evaluatio n of the urinary system also acquired and evaluated. All images stored on PACS. All CT scanners at this facility use dose modulation, iterative reconstruc tion, and/or weight based dosing when appropriate to reduce radiation dose to as low as reasonably ac hievable (ALARA). [facility]: Dose Right [facility]: CareDose [facility]: Dose Right [facility]: Teradose 4D [facility]: [employer] CONTRAST TYPE AND DOSE: contrast/concentration: Isovue 370.00 mg/ml; Total Contrast Delivered: 58.0 ml; Total Saline Delivered: 65.0 ml RENAL FUNCTION: GFR > 60. RADIATION DOSE: CT Rad equipment meets quality standard of care and radiation dose reduction techniq ues were employed. CTDIvol: 4.9 mGy. DLP: 179 mGy-cm. . LIMITATIONS: None. FINDINGS: LOWER CHEST: Small nodule in the lingula. LIVER: 5 cm and 4 cm low-density masses are noted in the right lobe. No dilated ducts. SPLEEN: Multiple low-density masses are present, largest measuring 3 cm. PANCREAS: No masses. No significant calcifications. No adjacent inflammation or peripancreatic fluid collections. Pancreatic duct not dilated. GALLBLADDER: Surgically absent. ADRENAL GLANDS: No significant masses or asymmetry. RIGHT KIDNEY AND URETER: No solid masses. No significant calcifications. No hydronephrosis or hyd roureter. LEFT KIDNEY AND URETER: No solid masses. 5 cm cysts. No significant calcifications. No hydronephr osis or hydroureter. AORTA AND VESSELS: No aneurysm. No dissection. Renal arteries, SMA, celiac without stenosis. RETROPERITONEUM: Bulky retroperitoneal adenopathy. BOWEL AND PERITONEAL CAVITY: Bulky mesenteric lymphadenopathy and omental nodularity. No bowel obstr uction. APPENDIX: Not visualized. ABDOMINAL WALL: No masses. No hernias. BONES: Chronic appearing compression of the L1 vertebral body. OTHER: Distended bladder with small amount of endoluminal gas. 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 Chronic appearing compression of the L1 vertebral body. TECHNICAL DOCUMENTATION: JOB ID: [id number] [place]-72 Quality ID # [id number]: Final reports with documentation of one or more dose reduction techniques (e.g., Au tomated exposure control, adjustment of the mA and/or kV according to patient size, use of iterative reconstruction technique) 2010 [employer]- All Rights Reserved Reading location - IP/workstation name: [employer]
[2017-11-26] MEDS: SIMETHICONE 80 MG TAB.CHEW PO PRN ×2 (04:11→10:24)
[2017-11-26] MEDS: LANSOPRAZOLE 30 MG TAB.RAP.DR PO SCH ×2 (05:28→17:54)
[2017-11-26] MEDS: HYDRALAZINE HCL INJ/PF 20 MG/1 ML SDV IV PRN (06:51)
[2017-11-26] MEDS: HYDRALAZINE HCL 25 MG TABLET PO SCH ×2 (10:25→21:12)
[2017-11-26] MEDS: ESCITALOPRAM OXALATE 10 MG TABLET PO SCH (10:25)
[2017-11-26] MEDS: LOSARTAN POTASSIUM 50 MG TABLET PO SCH (10:25)
[2017-11-26] MEDS: LORATADINE 10 MG TABLET PO SCH (10:25)
[2017-11-26] MEDS: CIPROFLOXACIN HCL 500 MG TABLET PO SCH ×2 (10:25→17:54)
[2017-11-26] MEDS: DOCUSATE SODIUM 100 MG CAPSULE PO SCH (10:25)
[2017-11-26] MEDS: ENOXAPARIN SODIUM INJ 30 MG/0.3 ML DISP.SYRIN SUBCUT SCH (10:25)
[2017-11-26] MEDS: ACETAMINOPHEN 325 MG TABLET PO PRN (11:10)
--- NOTE | 2017-11-26 11:37 | PDOC PROGRESS REPORT ---
Subjective Progress Note for:: 11/26/17 Subjective:: The patient is an 82-year-old female who was admitted on 11/24/2017 with a primary diagnosis of syncope. The patient had an MRI of the brain showing no acute findings. Echocardiogram demonstrated grade 2 diastolic dysfunction with mild pulmonary hypertension. CT scan of the chest demonstrated small spiculated lesions with question of lymphoma versus metastases to the liver and spleen. When I discussed this with the patient today she had several questions regarding her prognosis. We discussed her goals of care. She agreed to a consultation with hematology oncology. Dr. Mcclendon saw the patient yesterday. She ordered a repeat CT scan of the abdomen. This appears to demonstrate widely metastatic cancer. Reason For Visit: SYNCOPE Physical Exam Vital Signs: Temp Pulse Resp BP Pulse Ox 97.7 F 79 16 157/53 H 97 11/26/17 10:57 11/26/17 10:57 11/26/17 06:59 11/26/17 10:57 11/26/17 10:57 Intake & Output 11/25/17 11/26/17 11/27/17 06:59 06:59 07:59 Intake Total 552 0 Balance 552 0 Weight 54.2 kg 55.4 kg Additional comments: The patient appears to be elderly and extremely frail. She appears to have evidence of malnourishment with temporal wasting. Her cognition remains intact. Her facial appearance is otherwise unremarkable. Her lungs remain clear to auscultation bilaterally. Her cardiac exam continues to show a 2 out of 6 systolic ejection murmur. The abdomen is soft and flat. Bowel sounds are present in the lower quadrants. She does not have guarding or rebound noted and there are no hernias or masses present. The lower extremities are without pitting edema. The skin is clean, warm, dry and intact without lesions or rashes. Results Laboratory Results: 11/25/17 06:52 11/25/17 06:52 Impressions: Carotid Doppler Study 11/21/17 00:00 IMPRESSION: NO HEMODYNAMICALLY SIGNIFICANT STENOSIS. Chest CT 11/21/17 00:00 IMPRESSION: There are couple small spiculated nodules in the right lung apex as noted above which may only represent parenchymal scarring however the possibility of a neoplastic process cannot be excluded. No acute consolidations or pleural effusions are identified. Hepatic and splenic masses as noted above which could be related to lymphoma or metastatic disease. Periaortic adenopathy is identified. There is some nodularity of the left adrenal gland as noted above. A dedicated abdominal and pelvic CT scan may be of value for further evaluation. Other findings as noted above Head MRI 11/21/17 00:00 IMPRESSION: ATROPHY AND CHRONIC MICRO-VASCULAR ISCHEMIC CHANGES. OTHERWISE NORMAL MRI OF THE BRAIN WITHOUT INTRAVENOUS GADOLINIUM CONTRAST. EVIDENCE OF ACUTE STROKE: NO. Chest X-Ray 11/21/17 03:16 IMPRESSION: 1. Small left upper lobar pneumonia/atelectasis. 2. Zpee-kg-rmdhertl vertebral compression deformity at the thoracic lumbar junction. Knee X-Ray 11/21/17 03:16 IMPRESSION: No acute findings. 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 Pelvis X-Ray 11/21/17 03:16 IMPRESSION: No acute findings. Right total hip arthroplasty. Cervical Spine CT 11/21/17 03:17 IMPRESSION: 1. Spiculated lung lesions partially imaged; cannot exclude malignancy. Recommend contrast CT of the chest. 2. 0.2 cm degenerative C6 and C7 anterolisthesis. Head CT 11/21/17 03:17 IMPRESSION: Moderate scalp swelling. Else, no acute findings. Abdomen CT 11/25/17 00:00 IMPRESSION: Findings most consistent with metastatic disease to the liver, spleen, omentum, mesenteric and retroperitoneal lymph nodes. Chronic appearing compression of the L1 vertebral body. Assessment & Plan - Diagnosis (1) Chronic hyponatremia Is this a current diagnosis for this admission?: Yes Plan: I will repeat labs tomorrow. (2) DVT prophylaxis Is this a current diagnosis for this admission?: Yes Plan: Patient is receiving Lovenox (3) Fall Qualifiers: Encounter type: initial encounter Qualified Code(s): W19.XXXA - Unspecified fall, initial encounter Is this a current diagnosis for this admission?: Yes Plan: Continue efforts at reconditioning with strength training (4) Iron deficiency anemia Qualifiers: Iron deficiency anemia type: inadequate dietary iron intake Qualified Code( s): D50.8 - Other iron deficiency anemias Is this a current diagnosis for this admission?: Yes Plan: Continue supplemental iron (5) Lung mass Is this a current diagnosis for this admission?: Yes Plan: I greatly appreciate the assistance from the oncology service. Dr. Praveen Lara will be in later today to discuss the findings on the new CT scan. The patient is aware of the findings as I discussed them with her today. (6) Physical deconditioning Is this a current diagnosis for this admission?: Yes Plan: Continue physical therapy. (7) Severe protein-calorie malnutrition Is this a current diagnosis for this admission?: Yes Plan: Continue supplements. (8) Syncope Qualifiers: Syncope type: unspecified Qualified Code(s): R55 - Syncope and collapse Is this a current diagnosis for this admission?: Yes Plan: The patient's syncope was likely related to anemia, weakness, orthostasis and possibly a vagal event. Currently, there is no evidence of pericardial effusion are pericardial metastases. - Time Time Spent with patient: 25-34 minutes - Inpatient Certification Medical Necessity: Need Close Monitoring Due to Risk of Patient Decompensation, Risk of Complication if Not Cared For in Hospital, Risk of Diagnosis Which Will Require Inpatient Eval/Care/Monitoring
[2017-11-26] MEDS ORDERED: TRAZODONE HCL 50 MG TABLET PO PRN (12:18)
[2017-11-26] MEDS: HYDROCODONE/ACETAMINOPHEN 5-325 MG TABLET PO PRN ×2 (12:51→19:21)
--- NOTE | 2017-11-26 12:51 | PDOC PROGRESS REPORT ---
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 Today had a long discussion with the patient, family, spent greater than 40 minutes in discussion and coordination of care today. The patient herself does not want further diagnostics, and she is very weak and her performance status is poor, so we discussed that even if we found out what type of cancer she has the likelihood that we would be able to initiate any meaningful therapy would be low given her weakened status, age and comorbidities. Regardless, she does not want anything else to be done. I discussed this with her daughter, Angie, who agreed with this assessment as well. Therefore we will get hospice involved, I contacted [facility], the liaison Caren will set up a time with Angie to me today, and we will begin the process for home hospice. She will need a hospital bed, and other comfort needs. Of note, she does have severe nausea and vomiting to oxycodone, there is a nationwide shortage of morphine as well as Dilaudid IV, we will initiate Benedict for her. Also ordered trazodone as a sleep aid. Reason For Visit: SYNCOPE Physical Exam Vital Signs: Temp Pulse Resp BP Pulse Ox 97.7 F 79 16 157/53 H 97 11/26/17 10:57 11/26/17 10:57 11/26/17 06:59 11/26/17 10:57 11/26/17 10:57 Intake & Output 11/25/17 11/26/17 11/27/17 06:59 06:59 07:59 Intake Total 552 0 Balance 552 0 Weight 54.2 kg 55.4 kg General appearance: PRESENT: no acute distress, well-developed, well-nourished Head exam: PRESENT: atraumatic, normocephalic Eye exam: PRESENT: conjunctiva pink, EOMI, PERRLA. ABSENT: scleral icterus Ear exam: PRESENT: normal external ear exam Mouth exam: PRESENT: moist, tongue midline Neck exam: ABSENT: carotid bruit, JVD, lymphadenopathy, thyromegaly Respiratory exam: PRESENT: clear to auscultation shirley. ABSENT: rales, rhonchi, wheezes Cardiovascular exam: PRESENT: RRR. ABSENT: diastolic murmur, rubs, systolic murmur Pulses: PRESENT: normal dorsalis pedis pul Vascular exam: PRESENT: normal capillary refill GI/Abdominal exam: PRESENT: normal bowel sounds, soft. ABSENT: distended, guarding, mass, organolmegaly, rebound, tenderness Rectal exam: PRESENT: deferred Extremities exam: PRESENT: full ROM. ABSENT: calf tenderness, clubbing, pedal edema Neurological exam: PRESENT: alert, awake, oriented to person, oriented to place , oriented to time, oriented to situation, CN II-XII grossly intact. ABSENT: motor sensory deficit Psychiatric exam: PRESENT: appropriate affect, normal mood. ABSENT: homicidal ideation, suicidal ideation Skin exam: PRESENT: dry, intact, warm. ABSENT: cyanosis, rash Results Laboratory Results: 11/25/17 06:52 11/25/17 06:52 Impressions: Carotid Doppler Study 11/21/17 00:00 IMPRESSION: NO HEMODYNAMICALLY SIGNIFICANT STENOSIS. Chest CT 11/21/17 00:00 IMPRESSION: There are couple small spiculated nodules in the right lung apex as noted above which may only represent parenchymal scarring however the possibility of a neoplastic process cannot be excluded. No acute consolidations or pleural effusions are identified. Hepatic and splenic masses as noted above which could be related to lymphoma or metastatic disease. Periaortic adenopathy is identified. There is some nodularity of the left adrenal gland as noted above. A dedicated abdominal and pelvic CT scan may be of value for further evaluation. Other findings as noted above Head MRI 11/21/17 00:00 IMPRESSION: ATROPHY AND CHRONIC MICRO-VASCULAR ISCHEMIC CHANGES. OTHERWISE NORMAL MRI OF THE BRAIN WITHOUT INTRAVENOUS GADOLINIUM CONTRAST. EVIDENCE OF ACUTE STROKE: NO. Chest X-Ray 11/21/17 03:16 IMPRESSION: 1. Small left upper lobar pneumonia/atelectasis. 2. Krkm-dc-mbkznudb vertebral compression deformity at the thoracic lumbar junction. Knee X-Ray 11/21/17 03:16 IMPRESSION: No acute findings. 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 Pelvis X-Ray 11/21/17 03:16 IMPRESSION: No acute findings. Right total hip arthroplasty. Cervical Spine CT 11/21/17 03:17 IMPRESSION: 1. Spiculated lung lesions partially imaged; cannot exclude malignancy. Recommend contrast CT of the chest. 2. 0.2 cm degenerative C6 and C7 anterolisthesis. Head CT 11/21/17 03:17 IMPRESSION: Moderate scalp swelling. Else, no acute findings. Abdomen CT 11/25/17 00:00 IMPRESSION: Findings most consistent with metastatic disease to the liver, spleen, omentum, mesenteric and retroperitoneal lymph nodes. Chronic appearing compression of the L1 vertebral body. Assessment & Plan - Diagnosis (1) Carcinoma of unknown primary Is this a current diagnosis for this admission?: Yes Plan: She appears to have a carcinoma of unknown primary, most likely going to be a carcinoma rather than a lymphoma or hematologic malignancy, most likely a carcinomatosis type picture so the most likely initiating sites of this type picture would be ovary or intestine. Regardless, we will not follow with any diagnostic procedures, per the patient and family desires, and we would initiate hospice for her. We have made the above arrangements for hospice to contact Angie, the daughter, and set up a time for discussion, we have initiated pain medication and sleep aids for comfort. In addition I wrote for a DNR, patient agrees to this, she understands what this means. - Time Time Spent with patient: 35 or more minutes Anticipated discharge: Home, Hospice Within: within 24 hours
[2017-11-26] MEDS ORDERED: ZOLPIDEM TARTRATE 5 MG TABLET PO PRN (23:02)
[2017-11-27] MEDS: LANSOPRAZOLE 30 MG TAB.RAP.DR PO SCH (06:03)
[2017-11-27 06:53] LABS: ANION GAP 7 (5-19); BLOOD UREA NITROGEN 14 mg/dL (7-20); CALCIUM 8.9 mg/dL (8.4-10.2); CARBON DIOXIDE 23 mmol/L (22-30); CHLORIDE 100 mmol/L (98-107); GLUCOSE 73 mg/dL (75-110); PHOSPHORUS 3.9 mg/dL (2.5-4.5); POTASSIUM 3.9 mmol/L (3.6-5.0); SODIUM 129.7 mmol/L (137-145)
[2017-11-27 07:29] LABS: BASOPHILS % (AUTO) 0.5 % (0-2); EOSINOPHILS % (AUTO) 3.8 % (0-6); HEMATOCRIT 26.5 % (36.0-47.0); HEMOGLOBIN 8.5 g/dL (12.0-15.5); LYMPHOCYTES % (AUTO) 6.8 % (13-45); MEAN CORPUSCULAR HEMOGLOBIN 24.8 pg (27.0-33.4); MEAN CORPUSCULAR HGB CONC 32.2 g/dL (32.0-36.0); MEAN CORPUSCULAR VOLUME 77 fl (80-97); MONOCYTES % (AUTO) 9.8 % (3-13); PLATELET COUNT 369 10^3/uL (150-450); RED BLOOD COUNT 3.44 10^6/uL (3.72-5.28); RED CELL DISTRIBUTION WIDTH 17.9 % (11.5-14.0); SEGMENTED NEUTROPHILS % (AUTO) 79.1 % (42-78); TOTAL CELLS COUNTED % (AUTO) 100 %; WHITE BLOOD COUNT 8.4 10^3/uL (4.0-10.5)
[2017-11-27 07:30] LABS: ABSOLUTE EOSINOPHILS # (AUTO) 0.3 10^3/uL (0.0-0.6); ABSOLUTE LYMPHOCYTES (AUTO) 0.6 10^3/uL (0.5-4.7); ABSOLUTE MONOCYTES (AUTO) 0.8 10^3/uL (0.1-1.4); ABSOLUTE NEUT (AUTO) 6.6 10^3/uL (1.7-8.2)
--- NOTE | 2017-11-27 10:24 | PDOC PROGRESS REPORT ---
Subjective Progress Note for:: 11/27/17 Subjective:: Patient awake and alert, denies pain, vitals unremarkable, no overnight issues no new nursing issues. Given advanced malignancy with widespread metastases and terminal disease patient has been referred to home hospice. Anticipating follow-up consultation with discharge planning and home hospice. Reason For Visit: [facility]NCOPE Physical Exam Vital Signs: Temp Pulse Resp BP Pulse Ox 98.2 F 84 16 130/54 H 97 11/27/17 08:18 11/27/17 08:18 11/27/17 08:18 11/27/17 08:18 11/27/17 08:18 Intake & Output 11/25/17 11/26/17 11/27/17 11:59 11:59 12:59 Intake Total 552 0 304 Balance 552 0 304 Weight 54.2 kg 55.4 kg 55.5 kg General appearance: PRESENT: no acute distress, cooperative, thin. ABSENT: well -developed, well-nourished Head exam: PRESENT: atraumatic, normocephalic Eye exam: PRESENT: conjunctiva pink, EOMI, PERRLA. ABSENT: scleral icterus Ear exam: PRESENT: normal external ear exam Mouth exam: PRESENT: moist, tongue midline Neck exam: ABSENT: carotid bruit, JVD, lymphadenopathy, thyromegaly Respiratory exam: PRESENT: clear to auscultation shirley. ABSENT: rales, rhonchi, wheezes Cardiovascular exam: PRESENT: RRR. ABSENT: diastolic murmur, rubs, systolic murmur Pulses: PRESENT: normal dorsalis pedis pul Vascular exam: PRESENT: normal capillary refill GI/Abdominal exam: PRESENT: ascites, distended, hypoactive bowel sounds, normal bowel sounds, soft. ABSENT: guarding, mass, organolmegaly, rebound, tenderness Rectal exam: PRESENT: deferred Extremities exam: PRESENT: full ROM. ABSENT: calf tenderness, clubbing, pedal edema Neurological exam: PRESENT: alert, awake, oriented to person, oriented to place , oriented to time, oriented to situation, CN II-XII grossly intact. ABSENT: motor sensory deficit Psychiatric exam: PRESENT: appropriate affect, normal mood. ABSENT: homicidal ideation, suicidal ideation Skin exam: PRESENT: dry, intact, warm. ABSENT: cyanosis, rash Results Laboratory Results: 11/27/17 05:57 11/27/17 05:57 11/27/17 11/27/17 05:57 05:57 WBC 8.4 RBC 3.44 L Hgb 8.5 L Hct 26.5 L MCV 77 L MCH 24.8 L MCHC 32.2 RDW 17.9 H Plt Count 369 Seg Neutrophils % 79.1 H Lymphocytes % 6.8 L Monocytes % 9.8 Eosinophils % 3.8 Basophils % 0.5 Absolute Neutrophils 6.6 Absolute Lymphocytes 0.6 Absolute Monocytes 0.8 Absolute Eosinophils 0.3 Absolute Basophils 0.0 Sodium 129.7 L Potassium 3.9 Chloride 100 Carbon Dioxide 23 Anion Gap 7 BUN 14 Creatinine 0.80 Est GFR ( Amer) > 60 Est GFR (Non-Af Amer) > 60 Glucose 73 L Calcium 8.9 Phosphorus 3.9 Magnesium 1.4 L Impressions: Carotid Doppler Study 11/21/17 00:00 IMPRESSION: NO HEMODYNAMICALLY SIGNIFICANT STENOSIS. Chest CT 11/21/17 00:00 IMPRESSION: There are couple small spiculated nodules in the right lung apex as noted above which may only represent parenchymal scarring however the possibility of a neoplastic process cannot be excluded. No acute consolidations or pleural effusions are identified. Hepatic and splenic masses as noted above which could be related to lymphoma or metastatic disease. Periaortic adenopathy is identified. There is some nodularity of the left adrenal gland as noted above. A dedicated abdominal and pelvic CT scan may be of value for further evaluation. Other findings as noted above Head MRI 11/21/17 00:00 IMPRESSION: ATROPHY AND CHRONIC MICRO-VASCULAR ISCHEMIC CHANGES. OTHERWISE NORMAL MRI OF THE BRAIN WITHOUT INTRAVENOUS GADOLINIUM CONTRAST. EVIDENCE OF ACUTE STROKE: NO. Chest X-Ray 11/21/17 03:16 IMPRESSION: 1. Small left upper lobar pneumonia/atelectasis. 2. Xkxa-[id number] vertebral compression deformity at the thoracic lumbar junction. Knee X-Ray 11/21/17 03:16 IMPRESSION: No acute findings. 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 Pelvis X-Ray 11/21/17 03:16 IMPRESSION: No acute findings. Right total hip arthroplasty. Cervical Spine CT 11/21/17 03:17 IMPRESSION: 1. Spiculated lung lesions partially imaged; cannot exclude malignancy. Recommend contrast CT of the chest. 2. 0.2 cm degenerative C6 and C7 anterolisthesis. Head CT 11/21/17 03:17 IMPRESSION: Moderate scalp swelling. Else, no acute findings. Abdomen CT 11/25/17 00:00 IMPRESSION: Findings most consistent with metastatic disease to the liver, spleen, omentum, mesenteric and retroperitoneal lymph nodes. Chronic appearing compression of the L1 vertebral body. Assessment & Plan - Diagnosis (1) Carcinoma of unknown primary Is this a current diagnosis for this admission?: Yes Plan: Biophysical stable, poor candidate for palliative care, hospice consult initiated. Continue [place], trazodone. follow-up discharge planning and hospice arrangements. - Time Time Spent with patient: Less than 15 minutes
[2017-11-27] MEDS: ENOXAPARIN SODIUM INJ 30 MG/0.3 ML DISP.SYRIN SUBCUT SCH (11:33)
[2017-11-27] MEDS: HYDRALAZINE HCL 25 MG TABLET PO SCH (11:34)
[2017-11-27] MEDS: LOSARTAN POTASSIUM 50 MG TABLET PO SCH (11:34)
[2017-11-27] MEDS: LORATADINE 10 MG TABLET PO SCH (11:35)
[2017-11-27] MEDS: ESCITALOPRAM OXALATE 10 MG TABLET PO SCH (11:35)
[2017-11-27] MEDS: DOCUSATE SODIUM 100 MG CAPSULE PO SCH (11:35)
[2017-11-27] MEDS: CIPROFLOXACIN HCL 500 MG TABLET PO SCH (11:36)
--- NOTE | 2017-11-27 11:54 | PDOC PROGRESS REPORT ---
Subjective Progress Note for:: 11/27/17 Subjective:: Pt ready to d/c home w/ hospice today Reason For Visit: SYNCOPE Physical Exam Vital Signs: Temp Pulse Resp BP Pulse Ox 98.1 F 85 16 124/52 L 97 11/27/17 11:22 11/27/17 11:22 11/27/17 11:22 11/27/17 11:22 11/27/17 11:22 Intake & Output 11/26/17 11/27/17 11/28/17 05:59 06:59 06:59 Intake Total Balance Weight General appearance: PRESENT: no acute distress, well-developed, well-nourished Head exam: PRESENT: atraumatic, normocephalic Eye exam: PRESENT: conjunctiva pink, EOMI, PERRLA. ABSENT: scleral icterus Ear exam: PRESENT: normal external ear exam Mouth exam: PRESENT: moist, tongue midline Neck exam: ABSENT: carotid bruit, JVD, lymphadenopathy, thyromegaly Respiratory exam: PRESENT: clear to auscultation shirley. ABSENT: rales, rhonchi, wheezes Cardiovascular exam: PRESENT: RRR. ABSENT: diastolic murmur, rubs, systolic murmur Pulses: PRESENT: normal dorsalis pedis pul Vascular exam: PRESENT: normal capillary refill GI/Abdominal exam: PRESENT: normal bowel sounds, soft. ABSENT: distended, guarding, mass, organolmegaly, rebound, tenderness Rectal exam: PRESENT: deferred Extremities exam: PRESENT: full ROM. ABSENT: calf tenderness, clubbing, pedal edema Neurological exam: PRESENT: alert, awake, oriented to person, oriented to place , oriented to time, oriented to situation, CN II-XII grossly intact. ABSENT: motor sensory deficit Psychiatric exam: PRESENT: appropriate affect, normal mood. ABSENT: homicidal ideation, suicidal ideation Skin exam: PRESENT: dry, intact, warm. ABSENT: cyanosis, rash Results Laboratory Results: 11/27/17 05:57 11/27/17 05:57 11/27/17 11/27/17 05:57 05:57 WBC 8.4 RBC 3.44 L Hgb 8.5 L Hct 26.5 L MCV 77 L MCH 24.8 L MCHC 32.2 RDW 17.9 H Plt Count 369 Seg Neutrophils % 79.1 H Lymphocytes % 6.8 L Monocytes % 9.8 Eosinophils % 3.8 Basophils % 0.5 Absolute Neutrophils 6.6 Absolute Lymphocytes 0.6 Absolute Monocytes 0.8 Absolute Eosinophils 0.3 Absolute Basophils 0.0 Sodium 129.7 L Potassium 3.9 Chloride 100 Carbon Dioxide 23 Anion Gap 7 BUN 14 Creatinine 0.80 Est GFR ( Amer) > 60 Est GFR (Non-Af Amer) > 60 Glucose 73 L Calcium 8.9 Phosphorus 3.9 Magnesium 1.4 L Impressions: Carotid Doppler Study 11/21/17 00:00 IMPRESSION: NO HEMODYNAMICALLY SIGNIFICANT STENOSIS. Chest CT 11/21/17 00:00 IMPRESSION: There are couple small spiculated nodules in the right lung apex as noted above which may only represent parenchymal scarring however the possibility of a neoplastic process cannot be excluded. No acute consolidations or pleural effusions are identified. Hepatic and splenic masses as noted above which could be related to lymphoma or metastatic disease. Periaortic adenopathy is identified. There is some nodularity of the left adrenal gland as noted above. A dedicated abdominal and pelvic CT scan may be of value for further evaluation. Other findings as noted above Head MRI 11/21/17 00:00 IMPRESSION: ATROPHY AND CHRONIC MICRO-VASCULAR ISCHEMIC CHANGES. OTHERWISE NORMAL MRI OF THE BRAIN WITHOUT INTRAVENOUS GADOLINIUM CONTRAST. EVIDENCE OF ACUTE STROKE: NO. Chest X-Ray 11/21/17 03:16 IMPRESSION: 1. Small left upper lobar pneumonia/atelectasis. 2. Xddv-[id number] vertebral compression deformity at the thoracic lumbar junction. Knee X-Ray 11/21/17 03:16 IMPRESSION: No acute findings. 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 Pelvis X-Ray 11/21/17 03:16 IMPRESSION: No acute findings. Right total hip arthroplasty. Cervical Spine CT 11/21/17 03:17 IMPRESSION: 1. Spiculated lung lesions partially imaged; cannot exclude malignancy. Recommend contrast CT of the chest. 2. 0.2 cm degenerative C6 and C7 anterolisthesis. Head CT 11/21/17 03:17 IMPRESSION: Moderate scalp swelling. Else, no acute findings. Abdomen CT 11/25/17 00:00 IMPRESSION: Findings most consistent with metastatic disease to the liver, spleen, omentum, mesenteric and retroperitoneal lymph nodes. Chronic appearing compression of the L1 vertebral body. Assessment & Plan - Diagnosis (1) Carcinoma of unknown primary Is this a current diagnosis for this admission?: Yes Plan: D/c home today, coordinated w/ hospice, nursing and hospitalist team, spent >35 min in coordiation of care - Time Time Spent with patient: 35 or more minutes
--- NOTE | 2017-11-27 11:58 | PDOC TRANSFER SUMMARY ---
General - Admit/Disc Date/PCP Admission Date/Primary Care Provider: 11/24/17 09:50 NADER ROSS MD Discharge Date: 11/27/17 - Discharge Diagnosis (1) Carcinoma of unknown primary Is this a current diagnosis for this admission?: Yes - Additional Information Resuscitation Status: Do Not Resuscitate Discharge Diet: As Tolerated Discharge Activity: Bedrest Prescriptions: Hydrocodone/Acetaminophen [[place] 5-325 mg Tablet] 1 tab PO Q6HP PRN #90 tablet PRN Reason: Trazodone HCl [Desyrel 50 mg Tablet] 25 mg PO HSP PRN #30 tablet PRN Reason: Zolpidem Tartrate [Ambien 5 mg Tablet] 5 mg PO HSP PRN #30 tablet PRN Reason: Home Medications: Dexlansoprazole [Dexilant 60 mg Capsule] 60 mg PO DAILY 11/21/17 Escitalopram Oxalate [Lexapro 10 mg Tablet] 10 mg PO DAILY 11/21/17 Fexofenadine HCl [Gloria] 60 mg PO DAILY 11/21/17 Losartan Potassium [Cozaar 50 mg Tablet] 50 mg PO DAILY 11/21/17 Ondansetron HCl [Zofran 4 mg Tablet] 4 mg PO Q6HP PRN 11/21/17 Hydrocodone/Acetaminophen [[place] 5-325 mg Tablet] 1 tab PO Q6HP PRN #90 tablet 11/27/17 Trazodone HCl [Desyrel 50 mg Tablet] 25 mg PO HSP PRN #30 tablet 11/27/17 Zolpidem Tartrate [Ambien 5 mg Tablet] 5 mg PO HSP PRN #30 tablet 11/27/17 History of Present Illness Admission Date/PCP: 11/24/17 09:50 NADER ROSS MD Patient complains of: Dizziness History of Present Illness: KEARA FARAH is a 82 year old female who presented to the emergency room with complaints of feeling dizzy on getting up to the used to bathroom during the night. Said she did lose consciousness for a few seconds. She was unable to get up by herself and was helped up by her daughter. She denies any associated palpitations chest pain nausea vomiting and denies any incontinence. There apparently was also no seizure activity. Patient gives a history of such dizziness before in June 2017 was she did not come to the ER as this resolved spontaneously. States she had been told that she was iron deficient and she was supposed to have been started on iron infusion this week. In the ED, she was found to have lung, liver and spleen lesions on CT suspicious for cancer. Today, she states that she is feeling better. She asks if she will have another iron infusion. Hospital Course Hospital Course: Workup of patient's symptoms of dizziness revealed a spiculated lung mass, further imaging revealed widespread malignancy with metastasis. Patient is a poor candidate for palliative care. Patient and family receptive to hospice. Dr. Hart consulted in agreement and accepting hospice duties. Subsequently patient discharged to home with hospice. Physical Exam Vital Signs: Temp Pulse Resp BP Pulse Ox 98.1 F 85 16 124/52 L 97 11/27/17 11:22 11/27/17 11:22 11/27/17 11:22 11/27/17 11:22 11/27/17 11:22 Intake & Output 11/25/17 11/26/17 11/27/17 11:59 11:59 12:59 Intake Total 552 0 304 Balance 552 0 304 Weight 54.2 kg 55.4 kg 55.5 kg General appearance: PRESENT: mild distress, thin Head exam: PRESENT: atraumatic, normocephalic Eye exam: PRESENT: conjunctiva pink, EOMI, PERRLA. ABSENT: scleral icterus Ear exam: PRESENT: normal external ear exam Mouth exam: PRESENT: moist, tongue midline Neck exam: ABSENT: carotid bruit, JVD, lymphadenopathy, thyromegaly Respiratory exam: PRESENT: clear to auscultation shirley. ABSENT: rales, rhonchi, wheezes Cardiovascular exam: PRESENT: RRR. ABSENT: diastolic murmur, rubs, systolic murmur Pulses: PRESENT: normal dorsalis pedis pul Vascular exam: PRESENT: normal capillary refill GI/Abdominal exam: PRESENT: ascites, distended, soft. ABSENT: guarding, mass, organolmegaly, rebound, tenderness Rectal exam: PRESENT: deferred Extremities exam: PRESENT: full ROM. ABSENT: calf tenderness, clubbing, pedal edema Neurological exam: PRESENT: alert, awake, oriented to person, oriented to place , oriented to time, oriented to situation, CN II-XII grossly intact. ABSENT: motor sensory deficit Psychiatric exam: PRESENT: appropriate affect, normal mood. ABSENT: homicidal ideation, suicidal ideation Skin exam: PRESENT: dry, intact, warm. ABSENT: cyanosis, rash Results Laboratory Results: 11/27/17 05:57 11/27/17 05:57 11/27/17 11/27/17 05:57 05:57 WBC 8.4 RBC 3.44 L Hgb 8.5 L Hct 26.5 L MCV 77 L MCH 24.8 L MCHC 32.2 RDW 17.9 H Plt Count 369 Seg Neutrophils % 79.1 H Lymphocytes % 6.8 L Monocytes % 9.8 Eosinophils % 3.8 Basophils % 0.5 Absolute Neutrophils 6.6 Absolute Lymphocytes 0.6 Absolute Monocytes 0.8 Absolute Eosinophils 0.3 Absolute Basophils 0.0 Sodium 129.7 L Potassium 3.9 Chloride 100 Carbon Dioxide 23 Anion Gap 7 BUN 14 Creatinine 0.80 Est GFR ( Amer) > 60 Est GFR (Non-Af Amer) > 60 Glucose 73 L Calcium 8.9 Phosphorus 3.9 Magnesium 1.4 L Impressions: Carotid Doppler Study 11/21/17 00:00 IMPRESSION: NO HEMODYNAMICALLY SIGNIFICANT STENOSIS. Chest CT 11/21/17 00:00 IMPRESSION: There are couple small spiculated nodules in the right lung apex as noted above which may only represent parenchymal scarring however the possibility of a neoplastic process cannot be excluded. No acute consolidations or pleural effusions are identified. Hepatic and splenic masses as noted above which could be related to lymphoma or metastatic disease. Periaortic adenopathy is identified. There is some nodularity of the left adrenal gland as noted above. A dedicated abdominal and pelvic CT scan may be of value for further evaluation. Other findings as noted above Head MRI 11/21/17 00:00 IMPRESSION: ATROPHY AND CHRONIC MICRO-VASCULAR ISCHEMIC CHANGES. OTHERWISE NORMAL MRI OF THE BRAIN WITHOUT INTRAVENOUS GADOLINIUM CONTRAST. EVIDENCE OF ACUTE STROKE: NO. Chest X-Ray 11/21/17 03:16 IMPRESSION: 1. Small left upper lobar pneumonia/atelectasis. 2. Pafv-ay-kvuigvmt vertebral compression deformity at the thoracic lumbar junction. Knee X-Ray 11/21/17 03:16 IMPRESSION: No acute findings. 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 Pelvis X-Ray 11/21/17 03:16 IMPRESSION: No acute findings. Right total hip arthroplasty. Cervical Spine CT 11/21/17 03:17 IMPRESSION: 1. Spiculated lung lesions partially imaged; cannot exclude malignancy. Recommend contrast CT of the chest. 2. 0.2 cm degenerative C6 and C7 anterolisthesis. Head CT 11/21/17 03:17 IMPRESSION: Moderate scalp swelling. Else, no acute findings. Abdomen CT 11/25/17 00:00 IMPRESSION: Findings most consistent with metastatic disease to the liver, spleen, omentum, mesenteric and retroperitoneal lymph nodes. Chronic appearing compression of the L1 vertebral body. Transfer Plan - Disposition Transfer Plan: Home with hospice - Time Spent with Patient Time spent with patient: Greater than 30 Minutes Qualifiers - * [facility] BEING DISCHARGED WITH ANY OF THE FOLLOWING DIAGNOSIS?: No VTE patient discharged on overlapping Therapy?: No Plan Discharge Plan: Home with hospice follow-up with Dr. Hart as needed Time Spent: Less than 30 Minutes
[2017-11-27] MEDS: SIMETHICONE 80 MG TAB.CHEW PO PRN (12:51)
[2017-11-27] MEDS ORDERED: LACTULOSE SYRUP 20 GM/30 ML UDCUP PO PRN (12:51)
[2017-11-27] MEDS: HYDROCODONE/ACETAMINOPHEN 5-325 MG TABLET PO PRN (14:30)
[2017-11-27 15:57] VITALS: BP 163/53
[2017-11-27] MEDS ORDERED: DOCUSATE SODIUM 100 MG CAPSULE PO SCH (18:00)
== END 2017-11-27 16:26 | disposition hospice, home (50) | DRG 843 ==
LOC: ER 02:53 → EH 07:10 → INTOOBSV 07:10 → 3N 14:12 → OBSVTOIN 11-24 09:50 → 2N 11-25 01:00
PROVIDERS: ADMIT Internal Medicine; ATTEND Internal Medicine
DX: C80.1 Malignant (primary) neoplasm, unspecified (principal); E43 Unspecified severe protein-calorie malnutrition; D60.9 Acquired pure red cell aplasia, unspecified; E87.1 Hypo-osmolality and hyponatremia; C78.7 Secondary malignant neoplasm of liver and intrahepatic bile duct; C78.00 Secondary malignant neoplasm of unspecified lung; C78.89 Secondary malignant neoplasm of other digestive organs; C78.6 Secondary malignant neoplasm of retroperitoneum and peritoneum; K21.9 Gastro-esophageal reflux disease without esophagitis; I27.20 Pulmonary hypertension, unspecified; I25.2 Old myocardial infarction; M19.90 Unspecified osteoarthritis, unspecified site; Z91.81 History of falling; Z90.49 Acquired absence of other specified parts of digestive tract; Z88.2 Allergy status to sulfonamides; Z88.1 Allergy status to other antibiotic agents; Z68.20 Body mass index [BMI] 20.0-20.9, adult
CPT/HCPCS: 36415; 51701; 70450; 70551; 71046; 71260; 72125; 72170; 74160; 80048; 80053; 81001; 82272; 83540; 83735; 84100; 84484; 85025; 87086; 93005; 93010; 93306; 93880; 99285; G8978-GP; G8979-GP; J0360; J1650; J1756; J3490; J7030; J7120; S0164